=== PATIENT | female | born 1960 | race African-American/Black ===

== ENCOUNTER 2016-06-17 18:11 | Emergency (ER) | payer OTHER ==
[~2016-06-17] VITALS: Ht 157.5 cm; Wt 59.0 kg
[~2016-06-17 18:11] MED LIST: AMLO5TAB2 PO; ASP325T PO; CEPH500C PO; DICY20TA57 PO; HYDR-3454 PO; HYDR12.56 PO; LISI20TA PO; LORA1TAB PO; MELO-195 PO; OMEP-10 PO; POTA10TA36 PO; TOPI25TA2 PO
--- NOTE | 2016-06-17 18:55 | ED Head Injury ---
General Chief Complaint: General Problems/Pain Stated Complaint: HEADACHE/COUGH/STOMACH PAIN/NAUSEA Nursing Triage Note: AMBULATED TO ROOM 05 WITH MULTIPLE COMPLAINTS. STATES HER MAIN COMPLAINT IS HER HEADACHE THAT SHE HAS HAD FOR TWO DAYS. COUGH X1 MONTH WITH CLEAR SPUTUM, WHEEZING, BLURRY EYE SIGHT, AND NUMBESS IN LEFT ARM. FRESH BRUISE NOTED LEFT UPPER ARM BUT PT DOES NOT KNOW HOW SHE GOT IT. HAS AN APPT WITH DR FLOWER AT 0915. Source: patient, family, RN notes reviewed, old records Exam Limitations: no limitations History of Present Illness Time seen by provider: 18:54 Initial Comments As above and below. DAY is more frontal; Hx of HTN. States she is compliant c/ her meds. Has appointment c/ Eloise in AM regarding the above concerns. Occurred: other (current one x 2 days) Severity: moderate Location: frontal Associated Systoms: Cough, Headaches, Shortness of Air Allergies and Home Medications Allergies Coded Allergies: No Known Drug Allergies (Unverified , 10/22/12) Home Medications Albuterol Sulfate 6.7 Gm Hfa.aer.ad, 2 PUFF IH Q4H PRN for SHORTNESS OF BREATH, #1 Ref 0 Prescribed by: MIYA ARZATE on 06/17/162028 Amlodipine Besylate 5 Mg Tablet, 5 MG PO HS, (Reported) Aspirin 325 Mg Tab, 325 MG PO HS, (Reported) Cephalexin 500 Mg Capsule, 1 CAP PO TID, #21 Prescribed by: SHANE BASSETT on 12/01/14922 Hydrochlorothiazide 12.5 Mg Tablet, 12.5 MG PO HS, (Reported) Hydrocodone/Acetaminophen 1 Each Tablet, 1-2 TAB PO Q4-6HR PRN for PAIN, #30 Prescribed by: SHANE BASSETT on 12/01/1423 Lisinopril 20 Mg Tablet, 20 MG PO HS, (Reported) Meloxicam 15 Mg Tablet, 15 MG PO HS, (Reported) Methylprednisolone 4 Mg Tab.ds.pk, 4 MG PO UD, #1 Ref 0 Prescribed by: MIYA ARZATE on 06/17/162028 Topiramate 25 Mg Tablet, 25 MG PO HS, (Reported) Constitutional: see HPI Eyes: See HPI, Blurred Vision Respiratory: see HPI, cough, wheezing : No Psychiatric/Neurological: See HPI, Headache, Numbness (LUE) Hematologic/Lymphatic: See HPI, Easy Bruising All Other Systems Reviewed Negative Unless Noted: Yes (Negative excepted noted.) Past Lkuyoru-Xojuaf-Fnfxkt Hx Patient Social History Alcohol Use: Occasionally Uses Recreational Drug Use: No Smoking Status: Never a Smoker Recent Foreign Travel: No Contact w/Someone Who Travel: No Recent Infectious Disease Expo: No Recent Hopitalizations: Yes (LUMP REMOVED) Immunizations Up To Date Tetanus Booster (TDap): More than 5yrs Date of Pneumonia Vaccine: Jan 16, 2012 Date of Influenza Vaccine: Jan 16, 2012 Surgeries HX Surgeries: Yes ("LUMP REMOVED FROM LEFT ARM AND RIGHT THIGH") Respiratory Hx Respiratory Disorders: Yes Respiratory Disorders: Sleep Apnea Cardiovascular Hx Cardiac Disorders: Yes (MURMUR A CHILD) Neurological Hx Neurological Disorders: Yes Neurological Disorders: Headaches /Migraines Reproductive System Hx Reproductive Disorders: No Genitourinary Hx Genitourinary Disorders: No Gastrointestinal Hx Gastrointestinal Disorders: No Gastrointestinal Disorders: Ulcer Musculoskeletal Hx Musculoskeletal Disorders: Yes (BILAT LEG SPASMS, BUNION, JOINT PAIN) Musculoskeletal Disorders: Spasms Endocrine Hx Endocrine Disorders: No (USED TO TAKE THYROID MED, ) HEENT HX ENT Disorders: Yes (DENTURES) Cancer Hx Cancer: No Psychosocial Hx Psychiatric Problems: Yes Behavioral Health Disorders: Anxiety, Depression Integumentary HX Skin/Integumentary Disorder: No Blood Transfusions Hx Blood Disorders: No Physical Exam Vital Signs Vital Sign - Last 12Hours 06/17/16 18:40 Temp 97.6 Pulse 80 Resp 16 B/P (MAP) 176/118 Pulse Ox 98 Capillary Refill : Less Than 3 Seconds General Appearance: WD/WN, no apparent distress HEENT: PERRL/EOMI, normal ENT inspection, pharynx normal Neck: supple Cardiovascular: regular rate, rhythm Respiratory: no respiratory distress, wheezing Gastrointestinal: soft, No tenderness Extremities: normal inspection Psychiatric: alert, oriented x 3, depressed affect Crainal Nerves: normal hearing, normal speech, PERRL Motor/Sensory: no motor deficit Skin: warm/dry Betty Coma Score Best Eye Response: (4) Open Spontaneously Best Verbal Response: (5) Oriented Best Motor Response: (6) Obeys Commands Betty Total: 15 Progress/Results/Core Measures Results/Orders Lab Results Laboratory Tests Test 06/17/16 19:15 Range/Units White Blood Count 3.6 L 4.3-11.0 10^3/uL Red Blood Count 5.19 4.35-5.85 10^6/uL Hemoglobin 15.4 11.5-16.0 G/DL Hematocrit 43 35-52 % Mean Corpuscular Volume 83 80-99 FL Mean Corpuscular Hemoglobin 30 25-34 PG Mean Corpuscular Hemoglobin Concent 36 32-36 G/DL Red Cell Distribution Width 13.3 10.0-14.5 % Platelet Count 183 130-400 10^3/uL Mean Platelet Volume 10.5 H 7.4-10.4 FL Neutrophils (%) (Auto) 63 42-75 % Lymphocytes (%) (Auto) 22 12-44 % Monocytes (%) (Auto) 13 H 0-12 % Eosinophils (%) (Auto) 1 0-10 % Basophils (%) (Auto) 0 0-10 % Neutrophils # (Auto) 2.3 1.8-7.8 X 10^3 Lymphocytes # (Auto) 0.8 L 1.0-4.0 X 10^3 Monocytes # (Auto) 0.5 0.0-1.0 X 10^3 Eosinophils # (Auto) 0.0 0.0-0.3 10^3/uL Basophils # (Auto) 0.0 0.0-0.1 10^3/uL Prothrombin Time 13.9 12.2-14.7 SEC INR Comment 1.1 0.8-1.4 Activated Partial Thromboplast Time 27 24-35 SEC Sodium Level 140 135-145 MMOL/L Potassium Level 3.3 L 3.6-5.0 MMOL/L Chloride Level 107 98-107 MMOL/L Carbon Dioxide Level 24 21-32 MMOL/L Anion Gap 9 5-14 MMOL/L Blood Urea Nitrogen 14 7-18 MG/DL Creatinine 1.03 0.60-1.30 MG/DL Estimat Glomerular Filtration Rate > 60 BUN/Creatinine Ratio 14 Glucose Level 91 70-105 MG/DL Calcium Level 8.7 8.5-10.1 MG/DL Magnesium Level 2.2 1.8-2.4 MG/DL Total Bilirubin 0.5 0.1-1.0 MG/DL Aspartate Amino Transf (AST/SGOT) 16 5-34 U/L Alanine Aminotransferase (ALT/SGPT) 10 0-55 U/L Alkaline Phosphatase 99 40-136 U/L B-Type Natriuretic Peptide 51.5 <100.0 PG/ML Total Protein 6.8 6.4-8.2 G/DL Albumin 3.9 3.2-4.5 G/DL My Orders Orders - MIYA ARZATE DO Ct Head Wo (06/17/16 18:58) Chest Pa/Lat (2 View) (06/17/16 18:58) BNP (06/17/16 18:58) Cbc With Automated Diff (06/17/16 18:58) Comprehensive Metabolic Panel (06/17/16 18:58) Magnesium (06/17/16 18:58) Protime With Inr (06/17/16 18:58) Partial Thromboplastin Time (06/17/16 18:58) Saline Lock/Iv-Start (06/17/16 19:19) Albuterol/Ipra Inhalation Soln (Duoneb I (06/17/16 19:45) Svn Sm Volume Nebulizer Rt-Rfs (06/17/16 19:34) Dexamethasone Pf Injection (Decadron Pf (06/17/16 20:30) Ketorolac Injection (Toradol Injection) (06/17/16 20:30) Potassium Chloride (Tablet) (K Dur Table (06/17/16 20:30) Medications Given in ED Current Medications Medications Dose Ordered Sig/Homer Route Start Time Stop Time Status Last Admin Dose Admin Albuterol/ Ipratropium 3 ml ONCE ONCE INH 06/17/16 19:45 06/17/16 19:46 DC 06/17/16 20:03 3 ML Dexamethasone Sodium Phosphate 10 mg ONCE ONCE IV 06/17/16 20:30 06/17/16 20:31 DC 06/17/16 20:31 10 MG Ketorolac Tromethamine 15 mg ONCE ONCE IVP 06/17/16 20:30 06/17/16 20:31 DC 06/17/16 20:31 15 MG Potassium Chloride 40 meq ONCE ONCE PO 06/17/16 20:30 06/17/16 20:31 DC 06/17/16 20:30 40 MEQ Vital Signs/I&O Vital Sign - Last 12Hours 06/17/16 06/17/16 18:40 20:03 Temp 97.6 Pulse 80 Resp 16 B/P (MAP) 176/118 Pulse Ox 98 96 Blood Pressure Mean: 137 Diagnostic Imaging Diagonstic Imaging: Xray, CT Plain Films/CT/US/NM/MRI: chest, head Reviewed: Other (nothing acute on either CXR, or CT head per radiologist; did note nasal polyps noted on a MRI back in 2008 that patient wasn't aware of.) Departure Impression Impression: Primary Impression: Cough/wheezing (RAD) Additional Impressions: Labile hypertension Headache Hypokalemia Disposition: HOME, SELF-CARE Condition: Stable Departure-Patient Inst. Decision time for Depature: 20:24 Referrals: OBI FLOWER MD (PCP/Family) Primary Care Physician Patient Instructions: Asthma, Adult (DC), HEADACHE, High Blood Pressure (DC), Nasal Polyps Add. Discharge Instructions: All discharge instructions reviewed with patient and/or family. Voiced understanding. KEEP YOUR APPOINTMENT WITH DR. FLOWER SCHEDULE TO CONTINUE YOUR WORK UP. MAY BENEFIT FROM A FOLLOW UP VISIT WITH DR. HAWK REGARDING YOUR NASAL POLYP(S). Scripts Methylprednisolone (Medrol) 4 Mg Tab.ds.pk 4 MG PO UD, #1 PKG 0 Refills Prov: MIYA ARZATE DO 06/17/16 Albuterol Sulfate (Proventil Hfa) 6.7 Gm Hfa.aer.ad 2 PUFF IH Q4H Y for SHORTNESS OF BREATH, #1 EACH 0 Refills Prov: MIYA ARZATE DO 06/17/16 MIYA ARZATE DO Jun 17, 2016 18:54
[2016-06-17 19:24] LABS: BASOPHILS % (AUTO) 0 % (0-10); EOSINOPHILS % (AUTO) 1 % (0-10); LYMPHOCYTES # (AUTO) 0.8 X 10^3 (1.0-4.0); LYMPHOCYTES % (AUTO) 22 % (12-44); MEAN CORPUSCULAR HEMOGLOBIN 30 PG (25-34); MEAN CORPUSCULAR HGB CONC 36 G/DL (32-36); MEAN CORPUSCULAR VOLUME 83 FL (80-99); MEAN PLATELET VOLUME 10.5 FL (7.4-10.4); MONOCYTES # (AUTO) 0.5 X 10^3 (0.0-1.0); MONOCYTES % (AUTO) 13 % (0-12); NEUTROPHILS # (AUTO) 2.3 X 10^3 (1.8-7.8); NEUTROPHILS % (AUTO) 63 % (42-75); PLATELET COUNT 183 10^3/uL (130-400); RED BLOOD COUNT 5.19 10^6/uL (4.35-5.85); RED CELL DISTRIBUTION WIDTH 13.3 % (10.0-14.5); WHITE BLOOD COUNT 3.6 10^3/uL (4.3-11.0)
--- NOTE | 2016-06-17 19:29 | Diagnostic Imaging Report ---
Indication: Shortness breath, wheezing, cough PA and lateral chest Heart and mediastinum are normal. Lungs are clear. There are no effusions or pneumothoraces. Impression: Negative chest Dictated by: Dictated on workstation # [id number]
--- NOTE | 2016-06-17 19:31 | Diagnostic Imaging Report ---
PROCEDURE: CT head without contrast. TECHNIQUE: Multiple contiguous axial images were obtained through the brain without the use of intravenous contrast. INDICATION: Head pain. FINDINGS: There is no intracranial hemorrhage. No focal or generalized cerebral edema. No mass or mass effect. Orbits, sinuses, calvarium, and mastoids are unremarkable. The basilar cisterns are patent and sulci are non-effaced. There are no abnormal extra-axial fluid collections. IMPRESSION: Normal noncontrast-enhanced CT head. Dictated by: Dictated on workstation # [id number]
[2016-06-17 19:34] LABS: INR 1.1 (0.8-1.4); PROTHROMBIN TIME PATIENT 13.9 SEC (12.2-14.7)
[2016-06-17] MEDS ORDERED: RT-ALBUTEROL/IPRATROPIUM 3 ML (DUONEB) VIAL INH ONE (19:45)
[2016-06-17 19:51] LABS: ALANINE AMINOTRANSFERASE 10 U/L (0-55); ALBUMIN 3.9 G/DL (3.2-4.5); ANION GAP 9 MMOL/L (5-14); ASPARTATE AMINO TRANSFERASE 16 U/L (5-34); BILIRUBIN,TOTAL 0.5 MG/DL (0.1-1.0); BLOOD UREA NITROGEN 14 MG/DL (7-18); BUN/CREATININE RATIO 14; CALCIUM 8.7 MG/DL (8.5-10.1); CARBON DIOXIDE 24 MMOL/L (21-32); CHLORIDE 107 MMOL/L (98-107); CREATININE SERUM 1.03 MG/DL (0.60-1.30); GFR ESTIMATED > 60; GLUCOSE 91 MG/DL (70-105); MAGNESIUM 2.2 MG/DL (1.8-2.4); POTASSIUM 3.3 MMOL/L (3.6-5.0); SODIUM 140 MMOL/L (135-145); TOTAL PROTEIN 6.8 G/DL (6.4-8.2)
[2016-06-17] MEDS ORDERED: RT-ALBUINH IH (20:29)
[2016-06-17] MEDS ORDERED: METH4TAB PO (20:29)
[2016-06-17] MEDS ORDERED: KCL 20 MEQ TAB (K-DUR) PO ONE (20:30)
[2016-06-17] MEDS ORDERED: KETOROLAC 30 MG/ML VIAL IVP ONE (20:30)
[2016-06-17] MEDS ORDERED: DEXAMETHASONE PF 10 MG/ML (DECADRON) VIAL IV ONE (20:30)
[2016-06-17 20:50] VITALS: BP 174/114
--- OUTSIDE RECORDS SUMMARY | 2016-07-21 06:41 | XMS REPORT | Continuity of Care Document ---
Author Author [facility] Organization [facility] Address Unknown Phone Unavailable Allergies Active Description Code Type Severity Reaction Onset Reported/Identified Relationship to Patient Clinical Status Yes No Known Drug Allergies [id number] Drug Allergy Unknown N/ A 10/22/2012 Medications Problems Date Dx Coded Attending Type Code Diagnosis Diagnosed By 02/08/2012 Ot 574.20 CHOLELITHIASIS NOS 02/08/2012 Ot 789.06 ABDOMINAL PAIN, EPIGASTRIC 02/20/2012 Ot 300.00 ANXIETY STATE NOS 02/20/2012 Ot 401.9 HYPERTENSION NOS 02/20/2012 Ot 531.70 CHR STOMACH ULCER NOS 02/20/2012 Ot 716.90 ARTHROPATHY NOS-UNSPEC 02/20/2012 Ot 786.50 CHEST PAIN NOS 02/20/2012 Ot V17.49 FAMILY HISTORY OF OTHER CARDIOVASCULAR D 02/20/2012 Ot V58.66 LONG-TERM (CURRENT) USE OF ASPIRIN 02/20/2012 Ot V58.69 OTH MED,LT,CURRENT USE 05/18/2012 Ot 531.70 CHR STOMACH ULCER NOS 10/24/2012 OBI FLOWER MD Ot 276.8 HYPOPOTASSEMIA 10/24/2012 OBI FLOWER MD Ot 300.00 ANXIETY STATE NOS 10/24/2012 OBI FLOWER MD Ot V15.82 HISTORY OF TOBACCO USE 03/27/2013 OBI FLOWER MD Ot 327.23 OBSTRUCTIVE SLEEP APNEA (ADULT) (PEDIATR 03/27/2013 OBI FLOWER MD Ot 786.09 RESPIRATORY ABNORM NEC 04/05/2014 Ot 789.06 04/05/2014 Ot V72.84 04/05/2014 SHAMIKA SUAZO DO Ot 611.72 05/10/2014 Ot 789.06 05/10/2014 Ot V72.84 05/10/2014 SHAMIKA SUAZO DO Ot 611.72 11/28/2014 Ot 789.06 11/28/2014 Ot V72.84 11/28/2014 [place] SHAMIKA JAMESON Ot 611.72 12/01/2014 DANYELLE DPM, SHANE Q Ot 735.0 HALLUX VALGUS 12/01/2014 DANYELLE DPM, SHANE Q Ot 735.4 OTHER HAMMER TOE 12/01/2014 DANYELLE DPM, SHANE Q Ot 754.52 METATARSUS PRIMUS VARUS 12/14/2014 DANYELLE DPM, SHANE Q Ot 735.0 12/14/2014 DANYELLE DPM, SHANE Q Ot 735.4 12/14/2014 DANYELLE DPM, SHANE Q Ot V72.63 12/14/2014 DANYELLE DPM, SHANE Q Ot V74.8 01/24/2015 Ot 789.06 01/24/2015 Ot V72.84 01/24/2015 [place] SHAMIKA JAMESON Ot 611.72 01/24/2015 DANYELLE DPM, SHANE Q Ot 735.0 01/24/2015 DANYELLE DPM, SHANE Q Ot 735.4 01/24/2015 DANYELLE DPM, SHANE Q Ot V72.63 01/24/2015 DANYELLE DPM, SHANE Q Ot V74.8 01/24/2015 Ot 789.06 01/24/2015 Ot V72.84 01/24/2015 [place] SHAMIKA JAMESON Ot 611.72 01/24/2015 DANYELLE DPM, SHANE Q Ot 735.0 01/24/2015 DANYELLE DPM, SHANE Q Ot 735.4 01/24/2015 DANYELLE DPM, SHANE Q Ot V72.63 01/24/2015 DANYELLE DPM, SHANE Q Ot V74.8 10/17/2015 MUNDO HERNANDEZ, OBI R Ot M25.40 EFFUSION, UNSPECIFIED JOINT 10/25/2015 MUNDO HERNANDEZ, OBI R Ot M25.40 EFFUSION, UNSPECIFIED JOINT 10/30/2015 MUNDO HERNANDEZ, OBI R Ot M25.40 EFFUSION, UNSPECIFIED JOINT 01/29/2016 Ot 789.06 ABDOMINAL PAIN, EPIGASTRIC 01/29/2016 Ot V72.84 EXAM PRE-OPERATIVE NOS 01/29/2016 SUAZO SHAMIKA JAMESON Ot 611.72 LUMP OR MASS IN BREAST 01/29/2016 DANYELLE DPM, SHANE Q Ot 735.0 HALLUX VALGUS 01/29/2016 DANYELLE DPM, SHANE Q Ot 735.4 OTHER HAMMER TOE 01/29/2016 DANYELLE DPM, SHANE Q Ot V72.63 PRE-PROCEDURAL LABORATORY EXAMINATION 01/29/2016 DANYELLE DPM, SHANE Q Ot V74.8 SCREEN-BACTERIAL DIS NEC 01/29/2016 MUNDO HERNANDEZ, OBI R Ot M25.40 EFFUSION, UNSPECIFIED JOINT 06/17/2016 Ot 789.06 ABDOMINAL PAIN, EPIGASTRIC 06/17/2016 Ot V72.84 EXAM PRE-OPERATIVE NOS 06/17/2016 SHAMIKA SUAZO DO Ot 611.72 LUMP OR MASS IN BREAST 06/17/2016 DANYELLE DPM, SHANE Q Ot 735.0 HALLUX VALGUS 06/17/2016 DANYELLE DPM, SHANE Q Ot 735.4 OTHER HAMMER TOE 06/17/2016 DANYELLE DPM, SHANE Q Ot V72.63 PRE-PROCEDURAL LABORATORY EXAMINATION 06/17/2016 DANYELLE DPM, SHANE Q Ot V74.8 SCREEN-BACTERIAL DIS NEC 06/17/2016 MUNDO HERNANDEZ, OBI Morfin Ot M25.40 EFFUSION, UNSPECIFIED JOINT 06/18/2016 MIYA ARZATE DO Ot E87.6 HYPOKALEMIA 06/18/2016 MIYA ARZATE DO Ot I10 ESSENTIAL (PRIMARY) HYPERTENSION 06/18/2016 MIYA ARZATE DO Ot R05 COUGH 06/18/2016 MIYA ARZATE DO, Ot R51 HEADACHE 06/18/2016 MIYA ARZATE DO Ot Z79.82 HISTORICAL MANUSCRIPTS CURATOR (CURRENT) USE OF ASPIRIN 06/18/2016 MIYA ARZATE DO, Ot Z79.899 OTHER HISTORICAL MANUSCRIPTS CURATOR (CURRENT) DRUG THERAPY 06/28/2016 MUNDO HERNANDEZ, OBI Morfin Ot R10.33 PERIUMBILICAL PAIN Procedures Results Test Result Range Serum or plasma rheumatoid factor measurement (units/volume) - 10/16/15 15:35 Serum or plasma rheumatoid factor measurement (units/volume) NEGATIVE NEGATIVE Erythrocyte sedimentation rate by westergren method - 10/16/15 15:35 Erythrocyte sedimentation rate by westergren method 13 mm 0-30 ANTI-NUCLEAR AB (NINA) ANALYZER - 10/16/15 15:35 Screening antinuclear antibody (NINA) assay by enzyme immunoassay <1:80 <1:80 Complete blood count (CBC) with automated white blood cell (WBC) differential - 06/17/16 19:15 Blood leukocytes automated count (number/volume) 3.6 10*3/ uL 4.3-11.0 Blood erythrocytes automated count (number/volume) 5.19 10*6 /uL 4.35-5.85 Venous blood hemoglobin measurement (mass/volume) 15.4 g/dL 11.5-16.0 Blood hematocrit (volume fraction) 43 % 35-52 Automated erythrocyte mean corpuscular volume 83 [foz_us] 80-99 Automated erythrocyte mean corpuscular hemoglobin (mass per erythrocyte) 30 pg 25-34 Automated erythrocyte mean corpuscular hemoglobin concentration measurement ( mass/volume) 36 g/dL 32-36 Automated erythrocyte distribution width ratio 13.3 % 10.0-14.5 Automated blood platelet count (count/volume) 183 10*3/uL 130-400 Automated blood platelet mean volume measurement 10.5 [foz_ us] 7.4-10.4 Automated blood neutrophils/100 leukocytes 63 % 42-75 Automated blood lymphocytes/100 leukocytes 22 % 12-44 Blood monocytes/100 leukocytes 13 % 0-12 Automated blood eosinophils/100 leukocytes 1 % 0-10 Automated blood basophils/100 leukocytes 0 % 0-10 Blood neutrophils automated count (number/volume) 2.3 10*3 1.8-7.8 Blood lymphocytes automated count (number/volume) 0.8 10*3 1.0-4.0 Blood monocytes automated count (number/volume) 0.5 10*3 0.0-1.0 Automated eosinophil count 0.0 10*3/uL 0.0-0.3 Automated blood basophil count (count/volume) 0.0 10*3/uL 0.0-0.1 PT panel in platelet poor plasma by coagulation assay - 06/17/16 19:15 Prothrombin time (PT) in platelet poor plasma by coagulation assay 13.9 s 12.2-14.7 INR in platelet poor plasma or blood by coagulation assay 1.1 0.8-1.4 Activated partial thromboplastin time (aPTT) in platelet poor plasma bycoagulation assay - 06/17/16 19:15 Activated partial thromboplastin time (aPTT) in platelet poor plasma bycoagulation assay 27 s 24-35 Comprehensive metabolic panel - 06/17/16 19:15 Serum or plasma sodium measurement (moles/volume) 140 mmol/ L 135-145 Serum or plasma potassium measurement (moles/volume) 3.3 mmol/L 3.6-5.0 Serum or plasma chloride measurement (moles/volume) 107 mmol /L 98-107 Carbon dioxide 24 mmol/L 21-32 Serum or plasma anion gap determination (moles/volume) 9 mmol/L 5-14 Serum or plasma urea nitrogen measurement (mass/volume) 14 mg/dL 7-18 Serum or plasma creatinine measurement (mass/volume) 1.03 mg /dL 0.60-1.30 Serum or plasma urea nitrogen/creatinine mass ratio 14 NRG Serum or plasma creatinine measurement with calculation of estimated glomerular filtration rate > NRG Serum or plasma glucose measurement (mass/volume) 91 mg/dL 70-105 Serum or plasma calcium measurement (mass/volume) 8.7 mg/dL 8.5-10.1 Serum or plasma total bilirubin measurement (mass/volume) 0.5 mg/dL 0.1-1.0 Serum or plasma alkaline phosphatase measurement (enzymatic activity/volume) 99 U/L 40-136 Serum or plasma aspartate aminotransferase measurement (enzymatic activity/ volume) 16 U/L 5-34 Serum or plasma alanine aminotransferase measurement (enzymatic activity/volume ) 10 U/L 0-55 Serum or plasma protein measurement (mass/volume) 6.8 g/dL 6.4-8.2 Serum or plasma albumin measurement (mass/volume) 3.9 g/dL 3.2-4.5 Magnesium - 06/17/16 19:15 Magnesium 2.2 mg/dL 1.8-2.4 Serum or plasma lithium measurement (moles/volume) - 06/17/16 19:15 BNP level 51.5 pg/mL <100.0 Encounters ACCT No. Visit Date/Time Discharge Status Pt. Type Provider Facility Loc./Unit Complaint [id number] 06/17/2016 18:13:00 2016 20:50:00 DIS Outpatient MIYA ARZATE DO [facility] ER HEADACHE/COUGH/STOMACH PAIN/NAUSEA [id number] 12/01/2014 06:20:00 2014 11:20:00 DIS Outpatient DANYELLE SORINDenny, SHANE Q [facility] SDC HALLUX VALGUS, HAMMERTOE RIGHT FIFTH TOE [id number] 11/28/2014 11:50:00 2014 23:59:59 CLS Outpatient DANYELLE DPM SHANE Q [facility] PREOP HALLUX VALGUS, HAMMERTOE RIGHT FIFTH TOE [id number] 03/26/2013 20:11:00 2013 07:46:00 DIS Outpatient OBI FLOWER MD [facility] SLEEP OA,SNORING,HTN,INSOMNIA,NARCOLEPSY, EDS,HEADACHES [id number] 02/17/2013 13:39:00 2012 23:59:59 CLS Outpatient SHAMIKA SUAZO DO [facility] RAD LEFT BREAST MASS [id number] 10/22/2012 13:38:00 2012 10:31:00 DIS Inpatient OBI FLOWER MD [facility] 4TH LOW GRADE TEMP,MALIASE,FATIGUE [id number] 06/26/2016 10:36:00 ACT Outpatient OBI FLOWER MD [facility] RAD PERIUMBILICAL ABD PAIN [id number] 10/16/2015 15:22:00 ACT Outpatient OBI FLOWER MD [facility] LAB JOINT SWELLING [id number] 05/18/2012 07:28:00 Document Registration [id number] 05/14/2012 07:23:00 Document Registration [id number] 02/17/2012 17:15:00 Document Registration [id number] 02/11/2012 10:19:00 Document Registration [id number] 02/08/2012 16:17:00 Document Registration
--- OUTSIDE RECORDS SUMMARY | 2016-07-21 06:41 | XMS REPORT | Continuity of Care Document ---
Author Author [facility] Organization [facility] Address Unknown Phone Unavailable Care Team Providers Care Flower Shop Laborer/Designer Name Role Phone OBI FLOWER MD PP Insurance Providers Payer Name Policy Number Subscriber Name Relationship Santy [id number] Beryl Wills Yogesh 02 Advance Directives Directive Response Recorded Date Advance Directives N 10/22/12 1:45pm Health Care Power of Notch Grinder N 10/22/12 1:45pm Organ Donor N 10/22/12 1:45pm Problems No Known Problems or Medical conditions. Family History History Response Recorded Date/Time Hx Family Cancer N 10/22/12 1:45pm Hx Family Cardiac Disorders Y 10/22/12 1: 45pm Hx Family Hypertension Y FATHER 10/22/12 1:45pm Hx Family Myocardial Infarction Y FATHER 10/22/12 1:45pm Social History History Response Recorded Date/Time Alcohol Use Occasionally Uses 10/22/12 1: 45pm Recreational Drug Use N 10/22/12 1:45pm Allergies, Adverse Reactions, Alerts Allergen Type Severity Reaction Last Updated No Known Drug Allergies 10/22/12 Medications Medication Dose Units Route Sig Qty Days Potassium Chloride (K-Dur) 1 Each PO DAILY WITH MEAL 30 Lorazepam (Lorazepam 1 Mg) 1 Mg PO HS Meloxicam 15 Mg PO HS Aspirin (Aspirin 325 Mg Tab) 325 Mg PO HS Topiramate 25 Mg PO HS Amlodipine Besylate 5 Mg PO HS Lisinopril (Prinivil) 20 Mg PO HS Omeprazole (Prilosec 20 Mg) 20 Mg PO BID Dicyclomine Hcl (Bentyl) 1 Each PO ACHS PRN 20 Hydrochlorothiazide 12.5 Mg PO HS Meloxicam 15 Mg PO HS Immunizations Name Given Type Date of Pneumonia Vaccine 11/01/12 H Date of Influenza Vaccine 01/16/12 H Response Recorded Date/Time Status not known Unknown Results Test Date Result Interp. Ref. Range Activated Partial Thromboplast Time February 17, 2012 6: 53pm 29 SEC N 24-35 Alanine Aminotransferase (ALT/SGPT) February 17, 2012 6: 25pm 28 U/L L 30-65 Albumin February 17, 2012 6:25pm 3.9 G/ DL N 3.4-5.0 Alkaline Phosphatase February 17, 2012 6:25pm 89 U/L N 50-136 Amylase Level February 17, 2012 6:53pm 84 U/L N 25-115 Anti-Nuclear Antibody Screen October 13, 2007 11:40am <1:80 - Aspartate Amino Transf (AST/SGOT) February 17, 2012 6:25pm 18 U/L N 15-37 BUN/Creatinine Ratio February 17, 2012 6:25pm 16 - Basophils # (Auto) February 08, 2012 6:07pm 0.0 10^3/uL N 0.0-0.1 Basophils (%) (Auto) February 08, 2012 6:07pm 1 % N 0-10 Blood Urea Nitrogen February 17, 2012 6:25pm 18 MG/DL N 7-18 C-Reactive Protein February 17, 2012 6:25pm 0.4 MG/DL N 0.2-0.9 Calcium Level February 17, 2012 6:25pm 8.9 MG/DL N 8.5-10.1 Carbon Dioxide Level February 17, 2012 6:25pm 29 MMOL/L N 21-32 Chloride Level February 17, 2012 6:25pm 106 MMOL/L N 101-110 Cholesterol Level February 17, 2012 6:25pm 181 MG/DL N -200 Creatinine February 17, 2012 6:25pm 1.1 MG/DL N 0.6-1.3 Eosinophils # (Auto) February 08, 2012 6:07pm 0.2 10^3/uL N 0.0-0.3 Eosinophils (%) (Auto) February 08, 2012 6:07pm 4 % N 0-10 Erythrocyte Sedimentation Rate February 17, 2012 6:25pm 9 MM/HR N 0-30 Folate May 17, 2009 3:10pm >24.0 NG/ ML H - Free Thyroxine May 17, 2009 3:10pm 0.84 NG/DL N 0.59-1.17 Glucose Level February 17, 2012 6:25pm 83 MG/DL N 74-106 HDL Cholesterol February 17, 2012 6:25pm 60 MG/DL N 35-60 Hematocrit February 17, 2012 6:25pm 40 % N 35-52 Hemoglobin February 17, 2012 6:25pm 14.3 G/DL N 11.5-16.0 Hemoglobin A1c June 11, 2011 10:19am 4.6 % N 4.5-6.2 LDL Cholesterol February 17, 2012 6:25pm 104 MG/DL N 0-129 Lipase February 17, 2012 6:53pm 141 U/L N 73-393 Lyme Disease (B.burgdorferi) Ab November 13, 2006 5:04pm 0.32 - Lymphocytes # (Auto) February 08, 2012 6:07pm 2.1 X 10^3 N 1.0-4.0 Lymphocytes (%) (Auto) February 08, 2012 6:07pm 44 % N 12-44 Magnesium Level October 13, 2007 11:40am 1.9 MG/DL N 1.8-2.4 Mean Corpuscular Hemoglobin February 17, 2012 6:25pm 30 PG N 25-34 Mean Corpuscular Hemoglobin Concent February 17, 2012 6: 25pm 36 G/DL N 32-36 Mean Corpuscular Volume February 17, 2012 6:25pm 84 FL N 80-99 Mean Platelet Volume February 17, 2012 6:25pm 11.0 FL H 7.4-10.4 Monocytes # (Auto) February 08, 2012 6:07pm 0.3 X 10^3 N 0.0-1.0 Monocytes (%) (Auto) February 08, 2012 6:07pm 6 % N 0-12 Neutrophils # (Auto) February 08, 2012 6:07pm 2.2 X 10^3 N 1.8-7.8 Neutrophils (%) (Auto) February 08, 2012 6:07pm 46 % N 42-75 Phosphorus Level October 13, 2007 11:40am 3.7 MG/DL N 2.5-4.9 Platelet Count February 17, 2012 6:25pm 233 10^3/uL N 130-400 Potassium Level February 17, 2012 6:25pm 3.3 MMOL/L L 3.6-5.0 Prothromb Time International Ratio February 17, 2012 6:53pm 1.1 N 0.8-1.4 Prothrombin Time February 17, 2012 6:53pm 14.4 SEC N 12.2-14.7 Red Blood Count February 17, 2012 6:25pm 4.81 10^6/uL N 4.35-5.85 Red Cell Distribution Width February 17, 2012 6:25pm 13.3 % N 10.0-14.5 Salicylates Level February 17, 2012 6:25pm 1.0 MG/DL L 2.8-20.0 Sodium Level February 17, 2012 6:25pm 140 MMOL/L N 135-145 Thyroid Stimulating Hormone (TSH) February 17, 2012 6:25pm 2.32 UIU/ML N 0.34- 5.60 Total Bilirubin February 17, 2012 6:25pm 0.5 MG/DL N 0.0-1.0 Total Protein February 17, 2012 6:25pm 7.5 G/DL N 6.4-8.2 Triglycerides Level February 17, 2012 6:25pm 85 MG/DL N 30.0-150.0 Troponin I February 18, 2012 6:05am < 0.10 NG/ML 0.00-0.10 Urine Bacteria February 08, 2012 4:42pm NEGATIVE /HPF - Urine Bilirubin February 08, 2012 4:42pm NEGATIVE - Urine Casts February 08, 2012 4:42pm NONE /LPF - Urine Clarity February 08, 2012 4:42pm CLEAR - Urine Color February 08, 2012 4:42pm YELLOW - Urine Crystals February 08, 2012 4:42pm NONE /LPF - Urine Culture Indicated February 08, 2012 4:42pm NO - Urine Glucose (UA) February 08, 2012 4:42pm NEGATIVE - Urine Ketones February 08, 2012 4:42pm NEGATIVE - Urine Leukocyte Esterase February 08, 2012 4:42pm TRACE H - Urine Mucus February 08, 2012 4:42pm NEGATIVE /LPF - Urine Nitrite February 08, 2012 4:42pm NEGATIVE - Urine Protein February 08, 2012 4:42pm NEGATIVE - Urine RBC February 08, 2012 4:42pm NONE /HPF - Urine Specific [place] February 08, 2012 4:42pm 1.020 - Urine Squamous Epithelial Cells February 08, 2012 4:42pm 0-2 /HPF - Urine Urobilinogen February 08, 2012 4:42pm 1 MG/DL - Urine WBC February 08, 2012 4:42pm 2-5 / HPF - Urine pH February 08, 2012 4:42pm 5 - VLDL Cholesterol February 17, 2012 6:25pm 17 MG/DL N 5-40 Vitamin B12 Level May 17, 2009 3:10pm 427 PG/ML - White Blood Count February 17, 2012 6:25pm 5.7 10^3/uL N 4.3-11.0 Lab Scanned Report February 17, 2012 5:10pm LAB Reports [id number] - Estimat Glomerular Filtration Rate February 08, 2012 6:07pm > 60 - Creatine Kinase February 18, 2012 6:05am 74 U/L N 1-159 Cardiac Panel Pathologist Review February 17, 2012 6:53pm SEE CARDIAC PATH REV - Urine RBC (Auto) February 08, 2012 4:42pm NEGATIVE - Procedures Procedure Code Date LEFT HEART CATHETERIZATION 77486 INJECTION FOR HEART X-RAYS 08330 INJECT FOR CORONARY X-RAYS 19756 IMAGING, CARDIAC CATH [id number] 11/26/05 IMAGING, CARDIAC CATH [id number] 11/26/05 UPPER GI ENDOSCOPY BIOPSY 78000 02/17/12 UPPER GI ENDOSCOPY BIOPSY 16544 05/18/12 Encounters Encounter Location Date/Time Discharged Inpatient [facility] 1:38pm Departed Emergency Room [facility] 09/03 4:17pm
== END 2016-06-17 20:50 | disposition home or self-care (01) ==
LOC: EDUNIT# 18:11 → ER 18:13
DX: R05 Cough (principal); I10 Essential (primary) hypertension; R51 Headache; E87.6 Hypokalemia; Z79.82 Long term (current) use of aspirin; Z79.899 Other long term (current) drug therapy
CPT/HCPCS: 36415; 70450; 71020; 80053; 83735; 83880; 85025; 85610; 85730; 96374; 96375

== ENCOUNTER → 2016-06-26 | Outpatient (CLI) | payer OTHER ==
[~2016-06-26] MED LIST changes: +METH4TAB PO; +RT-ALBUINH IH
--- NOTE | 2016-06-26 11:16 | Diagnostic Imaging Report ---
PROCEDURE: CT abdomen and pelvis without contrast. TECHNIQUE: Multiple contiguous axial images were obtained through the abdomen and pelvis without the use of intravenous contrast. INDICATION: Periumbilical pain. FINDINGS: The lung bases are clear. The liver appears normal. The gallbladder is present. The spleen is not enlarged. The pancreas is normal. The adrenals and kidneys appear normal. The appendix is normal. There is a tiny umbilical hernia containing fat. The small bowel is not dilated. The colon appears grossly normal. There is a 4.5 cm subserosal fibroid on the left side of the uterus and a 2.7 cm intramural fibroid on the right side of the uterus. The adnexa are unremarkable. There is minimal atherosclerosis of the aorta but no aneurysm. IMPRESSION: Fibroid uterus. Tiny umbilical hernia containing fat. Dictated by: Dictated on workstation # [id number]
== END ==
LOC: RAD 10:36
PROVIDERS: ATTEND Family Medicine
DX: R10.33 Periumbilical pain (principal)
CPT/HCPCS: 74176

== ENCOUNTER → 2017-01-15 | Outpatient (CLI) | payer OTHER | LOC: LAB 10:50 | PROVIDERS: ATTEND Family Medicine | DX: M15.0 Primary generalized (osteo)arthritis (principal) | CPT/HCPCS: 36415; 85652; 86038; 86039; 86430 ==

== ENCOUNTER → 2017-02-14 | Outpatient (CLI) | payer OTHER ==
[2017-02-14 11:55] LABS: MEAN PLATELET VOLUME 11.2 FL (7.4-10.4); RED BLOOD COUNT 4.91 10^6/uL (4.35-5.85); RED CELL DISTRIBUTION WIDTH 13.5 % (10.0-14.5); WHITE BLOOD COUNT 10.3 10^3/uL (4.3-11.0)
[2017-02-14 11:57] LABS: BILIRUBIN,URINE NEGATIVE (NEGATIVE); KETONES,URINE NEGATIVE (NEGATIVE); LEUKOCYTE ESTERASE ,URINE 2+ (NEGATIVE); NITRITE,URINE NEGATIVE (NEGATIVE); PH,URINE 7 (5-9); PROTEIN,URINE NEGATIVE (NEGATIVE); UROBILINOGEN,URINE NORMAL (NORMAL)
[2017-02-14 12:09] LABS: WBC,URINE 0-2 /HPF
[2017-02-14 12:21] LABS: ALANINE AMINOTRANSFERASE 13 U/L (0-55); ANION GAP 9 MMOL/L (5-14); ASPARTATE AMINO TRANSFERASE 14 U/L (5-34); BILIRUBIN,TOTAL 0.3 MG/DL (0.1-1.0); BLOOD UREA NITROGEN 28 MG/DL (7-18); BUN/CREATININE RATIO 33; CALCIUM 9.3 MG/DL (8.5-10.1); CARBON DIOXIDE 25 MMOL/L (21-32); CHLORIDE 108 MMOL/L (98-107); CREATININE SERUM 0.85 MG/DL (0.60-1.30); GFR ESTIMATED > 60; GLUCOSE 88 MG/DL (70-105); POTASSIUM 3.3 MMOL/L (3.6-5.0); SODIUM 142 MMOL/L (135-145); TOTAL PROTEIN 7.3 GM/DL (6.4-8.2); hs C REACTIVE PROTEIN 0.03 MG/DL (0.00-0.50)
[2017-02-14 12:42] LABS: THYROID STIMULATING HORMONE 1.55 UIU/ML (0.35-4.94)
[2017-02-17 16:07] LABS: CYCLIC CITRULLUINATED PEPTIDE 2.9 Units (0.0-19.0)
[2017-02-17 16:19] LABS: DIL RUSSELL VIPER VENOM SCREEN 0.86 ratio (0.00-1.20); LUPUS ANTICOAGULANT PTT 28.2 Seconds (24.4-41.7)
[2017-02-18 08:34] LABS: PT REF RML 13.8 SEC (10.5-15.7); PTT LUPUS 26.9 SEC (20.6-39.2)
== END ==
LOC: LAB 11:16
PROVIDERS: ATTEND Internal Medicine Rheumatology
DX: M32.19 Other organ or system involvement in systemic lupus erythematosus (principal)
CPT/HCPCS: 36415; 80053; 81000; 84439; 84443; 85027; 85610; 85613; 85705; 85730; 86038; 86039; 86141; 86146; 86147; 86200; 86430

== ENCOUNTER → 2017-05-20 | Outpatient (CLI) | payer OTHER ==
[2017-05-20 16:29] LABS: BASOPHILS % (AUTO) 0 % (0-10); EOSINOPHILS # (AUTO) 0.3 10^3/uL (0.0-0.3); EOSINOPHILS % (AUTO) 5 % (0-10); HEMATOCRIT 43 % (35-52); LYMPHOCYTES # (AUTO) 1.8 X 10^3 (1.0-4.0); LYMPHOCYTES % (AUTO) 30 % (12-44); MEAN CORPUSCULAR HEMOGLOBIN 30 PG (25-34); MEAN CORPUSCULAR HGB CONC 35 G/DL (32-36); MEAN CORPUSCULAR VOLUME 86 FL (80-99); MEAN PLATELET VOLUME 10.7 FL (7.4-10.4); MONOCYTES # (AUTO) 0.5 X 10^3 (0.0-1.0); MONOCYTES % (AUTO) 9 % (0-12); NEUTROPHILS # (AUTO) 3.3 X 10^3 (1.8-7.8); NEUTROPHILS % (AUTO) 56 % (42-75); PLATELET COUNT 221 10^3/uL (130-400); RED BLOOD COUNT 4.93 10^6/uL (4.35-5.85); WHITE BLOOD COUNT 5.9 10^3/uL (4.3-11.0)
[2017-05-20 16:55] LABS: ALANINE AMINOTRANSFERASE 16 U/L (0-55); ALKALINE PHOSPHATASE 96 U/L (40-136); BILIRUBIN,TOTAL 0.4 MG/DL (0.1-1.0); BUN/CREATININE RATIO 21; CALCIUM 9.2 MG/DL (8.5-10.1); CARBON DIOXIDE 29 MMOL/L (21-32); CHLORIDE 104 MMOL/L (98-107); CREATININE SERUM 0.99 MG/DL (0.60-1.30); GFR ESTIMATED > 60; GLUCOSE 85 MG/DL (70-105); POTASSIUM 3.2 MMOL/L (3.6-5.0); SODIUM 143 MMOL/L (135-145); TOTAL PROTEIN 7.3 GM/DL (6.4-8.2)
== END ==
LOC: LAB 16:08
PROVIDERS: ATTEND Family Medicine
DX: N39.45 Continuous leakage (principal)
CPT/HCPCS: 36415; 80053; 83036; 84443; 85025

== ENCOUNTER 2017-12-10 13:26 | Outpatient (CLI) | payer OTHER ==
[~2017-12-10] VITALS: Ht 157.5 cm; Wt 85.4 kg
[2017-12-10 13:51] VITALS: BP 152/106
[2017-12-10] MEDS ORDERED: POTA-51 PO (14:28)
[2017-12-10] MEDS ORDERED: ATOR40TA70 PO (14:28)
[2017-12-10] MEDS ORDERED: ASPI-999 PO (14:28)
[2017-12-10] MEDS ORDERED: MELO7.5T46 PO (14:28)
[2017-12-10] MEDS ORDERED: SOLI10TA2 PO (14:28)
[2017-12-10] MEDS ORDERED: LOSA50TA7 PO (14:28)
[2017-12-10] MEDS ORDERED: TOPI100T11 PO (14:28)
[2017-12-10] MEDS ORDERED: FLUT9.9S NS (14:28)
[2017-12-10] MEDS ORDERED: AMLO5TAB7 PO (14:28)
[2017-12-10] MEDS ORDERED: FAMO20TA3 PO (14:28)
[2017-12-10] MEDS ORDERED: ESCI20TA PO (14:28)
[2017-12-10] MEDS ORDERED: ROPI2TAB28 PO (14:28)
[2017-12-10] MEDS ORDERED: HYDR200T78 PO (14:28)
[2017-12-11] MEDS ORDERED: MELO15TA39 PO (11:52)
== END 2017-12-10 16:30 | disposition home or self-care (01) ==
LOC: PREOP 13:26
PROVIDERS: ATTEND Orthopaedic Surgery
DX: Z01.818 Encounter for other preprocedural examination (principal)
CPT/HCPCS: 87081

== ENCOUNTER 2017-12-17 07:00 | Day surgery (SDC) | payer OTHER ==
--- NOTE | 2017-12-08 11:57 | HISTORY AND PHYSICAL ---
DATE OF SERVICE: This will be for outpatient surgery on 12/17/2017 for right shoulder arthroscopy. HISTORY OF PRESENT ILLNESS: The patient is a 57-year-old right hand dominant female complains of progressive worsening right shoulder pain. She reports limitations because of the shoulder. This has been ongoing for several months and has been progressive in nature. She reports it is activity limiting. She underwent an MRI, which revealed a SLAP tear. She has failed to respond to conservative measures. Due to functional impairment and failure to improve, the patient has elected to proceed with surgical intervention. REVIEW OF SYSTEMS: No chest pain. No shortness of breath. No dysuria. PAST MEDICAL HISTORY: Hypertension, lupus, migraines, hyperlipidemia. PAST SURGICAL HISTORY: Tubal ligation, mass excision from the arm. FAMILY HISTORY: Noncontributory. PRIMARY CARE PROVIDER: Ishmael Navas MD. MEDICATIONS: , Proventil, losartan, amlodipine, hydrochlorothiazide, topiramate, meloxicam, , aspirin. ALLERGIES: No known drug allergies. SOCIAL HISTORY: The patient drinks alcohol occasionally. Denies tobacco use. PHYSICAL EXAMINATION: GENERAL: The patient is well developed, well nourished, no acute distress. HEENT: Normocephalic, atraumatic. Pupils are equal, round, reactive to light. Oropharynx is clear. NECK: Supple, no lymphadenopathy. LUNGS: Clear to auscultation bilaterally. HEART: Regular rate and rhythm. ABDOMEN: Soft, nontender, nondistended. EXTREMITIES: The right shoulder demonstrates positive Mogadore's maneuver pain with apprehension. She has negative Spurling's maneuver. She has mildly positive Neer's and Jerez sign. Slight weakness with abduction and external rotation. Active forward elevation of 170 degrees with painful beyond 90, external rotation symmetric at 70 and internal rotation is to L2 actively. IMPRESSION: Right shoulder SLAP tear. PLAN: Right shoulder arthroscopic biceps tenotomy and assessment of rotator cuff for possible rotator cuff repair. The risks, benefits, options, ramifications and recovery were discussed at length with the patient. She understands and wishes to proceed. Job ID: [id number] DocumentID: [id number] Dictated Date: 12/08/2017 11:21:57 Associate Partner Date: 12/08/2017 11:56:37 Dictated By: MIKE JHA MD
[~2017-12-17] VITALS: Ht 157.5 cm; Wt 85.4 kg
[~2017-12-17 07:00] MED LIST changes: +AMLO5TAB7 PO; +ASPI-999 PO; +ATOR40TA70 PO; +ESCI20TA PO; +FAMO20TA3 PO; +FLUT9.9S NS; +HYDR200T78 PO; +LOSA50TA7 PO; +MELO15TA39 PO; +MELO7.5T46 PO; +POTA-51 PO; +ROPI2TAB28 PO; +SOLI10TA2 PO; +TOPI100T11 PO
[2017-12-17 07:10] VITALS: BP 131/84
[2017-12-17] MEDS ORDERED: ROPIVACAINE 5MG/ML 30ML VIAL ONE (07:20)
[2017-12-17] MEDS ORDERED: fentaNYL INJECTION 100 MCG/2 ML AMP ONE (07:23)
[2017-12-17] MEDS ORDERED: MIDAZOLAM 2 MG/2 ML (VERSED) VIAL ONE (07:23)
--- NOTE | 2017-12-17 07:24 | Progress Note-Pre Operative ---
Pre-Operative Progress Note H&P Reviewed The H&P was reviewed, patient examined and no changes noted. Date Seen by Provider: Dec 17, 2017 Time Seen by Provider: 07:24 Date H&P Reviewed: Dec 17, 2017 Time H&P Reviewed: 07:24 Pre-Operative Diagnosis: right shoulder SLAP tear MIKE JHA MD Dec 17, 2017 07:24
[2017-12-17] MEDS ORDERED: BUPIVACAINE 0.5% 30 ML (SENSORCAINE) VIAL ONE (07:25)
[2017-12-17] MEDS ORDERED: morphine PF (DURAMORPH) 10 MG/10 ML AMP ONE (07:25)
--- NOTE | 2017-12-17 07:25 | Progress Note-Post Operative ---
Post-Operative Progess Note Surgeon (s)/Seed Packer (s) Surgeon MIKE JHA MD Seed Packer: Shawn Casillas Pre-Operative Diagnosis right shoulder SLAP tear Post-Operative Diagnosis right shoulder SLAP tear and labral tear Procedure & Operative Findings Date of Procedure 12/17/17 Procedure Performed/Findings right shoulder arthroscopic biceps tenotomy and labral debridement Anesthesia Type GETA Estimated Blood Loss Estimated blood loss (mL): minimal Specimens/Packing Specimens Removed none Packing: none MIKE JHA MD Dec 17, 2017 07:25
[2017-12-17] MEDS ORDERED: NS (IVPB) 50 ML ONE (07:32)
[2017-12-17] MEDS ORDERED: ceFAZolin 1,000 MG/10 ML (ANCEF) VIAL ONE (07:32)
[2017-12-17] MEDS ORDERED: ROCURONIUM 10 MG/ML 5 ML SYRINGE IV ONE (07:54)
[2017-12-17] MEDS ORDERED: ONDANSETRON 4 MG/2 ML (SDV) Z0FRAN ONE (07:54)
[2017-12-17] MEDS ORDERED: proPOfol 200 MG/20 ML (DIPRIVAN) VIAL IV ONE (07:54)
[2017-12-17] MEDS ORDERED: LIDOCAINE PF 2% 2 ML (XYLOCAINE) VIAL ONE (07:54)
[2017-12-17] MEDS ORDERED: LACTATED RINGERS 1,000 ML IV PRN (07:59)
[2017-12-17] MEDS ORDERED: ceFAZolin INJECTION 1,000 MG in NS (IVPB) 50 ML IV ONE (08:00)
[2017-12-17] MEDS ORDERED: oxyCODONE/APAP 5/325MG (PERCOCET 5) TABLET PO PRN (08:15)
[2017-12-17] MEDS ORDERED: PHENYLEPHRINE 100 MCG/ML 10 ML (ANESTHESIA) SYR ONE (08:49)
[2017-12-17] MEDS ORDERED: GLYCOPYRROLATE 0.2 MG/ML (ROBINUL) 2 ML VIAL ONE (08:50)
[2017-12-17] MEDS ORDERED: NEOSTIGMINE 1 MG/ML 5 ML SYRINGE ONE (08:50)
[2017-12-17] MEDS ORDERED: HYDROmorphone 2 MG/ML VIAL (DILAUDID) IV ONE (09:00)
[2017-12-17] MEDS ORDERED: ONDANSETRON 4 MG/2 ML (SDV) Z0FRAN IVP PRN (09:00)
[2017-12-17] MEDS ORDERED: morphine INJ 10 MG/ML 1ML (SYR OR VIAL) IVP ONE (09:00)
[2017-12-17] MEDS ORDERED: MEPERIDINE (DEMEROL) INJ 50 MG/ML IVP ONE (09:00)
[2017-12-17] MEDS ORDERED: PROPOFOL INJECTION 50 ML IV ONE (09:03)
[2017-12-17 09:45] VITALS: BP 122/81
--- NOTE | 2017-12-17 09:50 | OPERATIVE REPORT ---
DATE OF SERVICE: 12/17/2017 PREOPERATIVE DIAGNOSES: 1. Right shoulder superior labrum anterior and posterior tear. 2. Right shoulder labral tear. POSTOPERATIVE DIAGNOSES: 1. Right shoulder superior labrum anterior and posterior tear. 2. Right shoulder labral tear. PROCEDURES: 1. Right shoulder arthroscopic biceps tenotomy. 2. Right shoulder arthroscopic labral debridement. SURGEON: Mike Jha MD. LIME HIDE INSPECTOR: MEGHAN Arana, who assisted throughout the procedure and closed the incisions. ANESTHESIA: General endotracheal plus interscalene nerve block. ESTIMATED BLOOD LOSS: Minimal. DRAINS: None. COMPLICATIONS: None. POSTOPERATIVE PLAN: Sling wear for comfort with progressive range of motion as symptoms allow. The patient was transferred to the recovery room awake and in stable condition. STATEMENT OF MEDICAL NECESSITY: The patient is a 57-year-old right hand dominant female with complaints of right shoulder pain, worse with overhead activities. She underwent an MRI after failing conservative measures and was found to have a SLAP tear as well as an anterior labral tear. Due to functional impairment and failure to improve with conservative measures, the patient elected to proceed with surgical intervention. Examination under anesthesia revealed forward elevation of 170 degrees, external rotation of 80 degrees, internal rotation of 70 degrees. Arthroscopic findings demonstrated type 2 SLAP tear with a posterior labral flap at the 10 o'clock to 11 o'clock positions. The remainder of the labrum was intact. There was no significant glenoid or humeral head articular wear. There was mild undersurface fraying at the anterior supraspinatus insertion. The rotator cuff was intact throughout. DESCRIPTION OF PROCEDURE: After risks and benefits of the procedure were discussed and questions were answered, informed consent was signed and placed on the chart. The operative site was confirmed in the preoperative holding area initialed by the surgeon. The patient was then transferred to the operating room. After adequate levels of general endotracheal anesthetic were obtained, a timeout was called confirming the operative site. Examination under anesthesia was performed with the above findings noted. The right shoulder and upper extremity were prepped and draped in the usual sterile fashion. Shoulder joint was injected with 20 mL of fluid. A standard posterior portal was placed under direct visualization. An anterior portal was created in the interval between the biceps, subscapularis and glenoid. The biceps anchor was released and the stump was debrided with shaver. The posterior labral tear was debrided with a shaver back to a stable edge as well. Shoulder joint was copiously irrigated. Portal sites were closed with 4-0 nylon in simple interrupted fashion. Shoulder was injected with Duramorph. Port sites were infiltrated with plain Marcaine. A soft dressing and sling were applied and the patient was transferred to the recovery room awake and in stable condition. Job ID: [id number] DocumentID: [id number] Dictated Date: 12/17/2017 08:51:01 Jinrikisha Driver Date: 12/17/2017 09:49:35 Dictated By: MIKE JHA MD
[2017-12-17] MEDS ORDERED: OXYC-471 PO (09:54)
[2017-12-17 10:15] VITALS: BP 127/86
[2017-12-17 10:45] VITALS: BP 124/76
--- NOTE | 2017-12-17 11:35 | Anesthesia-General Post-Op ---
General Patient Condition Mental Status/LOC: Same as Preop Cardiovascular: Satisfactory Nausea/Vomiting: Absent Respiratory: Satisfactory Pain: Controlled Complications: Absent Post Op Complications Complications None Follow Up Care/Instructions Patient Instructions None needed. Anesthesia/Patient Condition Patient Condition Patient is doing well, no complaints, stable vital signs, no apparent adverse anesthesia problems. No complications reported per nursing. D/C home per [facility] [place] Criteria: Yes CALIN ARMSTRONG CRNA Dec 17, 2017 11:35
== END 2017-12-17 11:00 | disposition home or self-care (01) ==
LOC: SDC 07:00
PROVIDERS: ATTEND Orthopaedic Surgery
DX: S43.431A Superior glenoid labrum lesion of right shoulder, initial encounter (principal); I10 Essential (primary) hypertension; M32.9 Systemic lupus erythematosus, unspecified; G43.909 Migraine, unspecified, not intractable, without status migrainosus; E78.5 Hyperlipidemia, unspecified; J45.909 Unspecified asthma, uncomplicated; F32.9 Major depressive disorder, single episode, unspecified; F41.9 Anxiety disorder, unspecified; K21.9 Gastro-esophageal reflux disease without esophagitis; Z79.899 Other long term (current) drug therapy; Z87.891 Personal history of nicotine dependence; Z79.82 Long term (current) use of aspirin

== ENCOUNTER 2018-04-09 09:23 | Outpatient (CLI) | payer OTHER ==
[~2018-04-09] VITALS: Ht 157.5 cm; Wt 84.9 kg
[~2018-04-09 09:23] MED LIST changes: -AMLO5TAB7 PO; +AMLO5TAB9 PO; +LOSA50TA63 PO; -LOSA50TA7 PO; +OXYC-471 PO
[2018-04-09 09:41] VITALS: BP 129/85
== END 2018-04-09 09:56 | disposition home or self-care (01) ==
LOC: PREOP 09:23
PROVIDERS: ATTEND Orthopaedic Surgery
DX: Z01.818 Encounter for other preprocedural examination (principal)
CPT/HCPCS: 87081

== ENCOUNTER → 2018-05-18 | Outpatient (CLI) | payer OTHER ==
[~2018-05-18] MED LIST changes: -HYDR-3454 PO; +HYDR-3455 PO
[2018-05-18 15:09] LABS: BASOPHILS % (AUTO) 0 % (0-10); EOSINOPHILS # (AUTO) 0.1 10^3/uL (0.0-0.3); EOSINOPHILS % (AUTO) 2 % (0-10); HEMATOCRIT 43 % (35-52); HEMOGLOBIN 15.2 G/DL (11.5-16.0); LYMPHOCYTES % (AUTO) 39 % (12-44); MEAN CORPUSCULAR HEMOGLOBIN 30 PG (25-34); MEAN CORPUSCULAR HGB CONC 36 G/DL (32-36); MEAN CORPUSCULAR VOLUME 84 FL (80-99); MEAN PLATELET VOLUME 10.8 FL (7.4-10.4); MONOCYTES # (AUTO) 0.4 X 10^3 (0.0-1.0); MONOCYTES % (AUTO) 7 % (0-12); NEUTROPHILS # (AUTO) 2.7 X 10^3 (1.8-7.8); NEUTROPHILS % (AUTO) 51 % (42-75); PLATELET COUNT 190 10^3/uL (130-400); RED CELL DISTRIBUTION WIDTH 13.2 % (10.0-14.5); WHITE BLOOD COUNT 5.2 10^3/uL (4.3-11.0)
[2018-05-18 15:30] LABS: ALANINE AMINOTRANSFERASE 10 U/L (0-55); ALBUMIN 4.2 GM/DL (3.2-4.5); ALKALINE PHOSPHATASE 86 U/L (40-136); BILIRUBIN,TOTAL 0.5 MG/DL (0.1-1.0); BUN/CREATININE RATIO 23; CALCIUM 9.5 MG/DL (8.5-10.1); CARBON DIOXIDE 25 MMOL/L (21-32); CHLORIDE 108 MMOL/L (98-107); CREATININE SERUM 1.04 MG/DL (0.60-1.30); GFR ESTIMATED > 60; GLUCOSE 84 MG/DL (70-105); POTASSIUM 3.1 MMOL/L (3.6-5.0); SODIUM 142 MMOL/L (135-145); TOTAL PROTEIN 6.8 GM/DL (6.4-8.2)
== END ==
LOC: LAB 14:50
PROVIDERS: ATTEND Family Medicine
DX: Z83.3 Family history of diabetes mellitus (principal)
CPT/HCPCS: 36415; 80053; 83036; 84443; 85025

== ENCOUNTER 2018-05-26 14:30 | Outpatient (CLI) | payer OTHER ==
[~2018-05-26] VITALS: Ht 157.5 cm; Wt 88.5 kg
[2018-05-27] MEDS ORDERED: HYDR-3816 PO (10:07)
== END 2018-05-26 14:40 | disposition home or self-care (01) ==
LOC: PREOP 14:30
PROVIDERS: ATTEND Orthopaedic Surgery
DX: Z01.818 Encounter for other preprocedural examination (principal)

== ENCOUNTER 2018-05-27 07:55 | Day surgery (SDC) | payer OTHER ==
[~2018-05-27] VITALS: Ht 157.5 cm; Wt 84.0 kg
[2018-05-27 08:02] VITALS: BP 147/79
--- OUTSIDE RECORDS SUMMARY | 2018-05-27 08:16 | XMS REPORT | Continuity of Care Document ---
Author Author [facility] Organization [facility] Address Unknown Phone Unavailable Allergies Active Description Code Type Severity Reaction Onset Reported/Identified Relationship to Patient Clinical Status Yes No Known Drug Allergies [id number] Drug Allergy Unknown N/A 04/09/2018 Medications There is no data. Problems Date Dx Coded Attending Type Code Diagnosis Diagnosed By 02/08/2012 Ot 574.20 CHOLELITHIASIS NOS 02/08/2012 Ot 789.06 ABDOMINAL PAIN, EPIGASTRIC 02/20/2012 Ot 300.00 ANXIETY STATE NOS 02/20/2012 Ot 401.9 HYPERTENSION NOS 02/20/2012 Ot 531.70 CHR STOMACH ULCER NOS 02/20/2012 Ot 716.90 ARTHROPATHY NOS-UNSPEC 02/20/2012 Ot 786.50 CHEST PAIN NOS 02/20/2012 Ot V17.49 FAMILY HISTORY OF OTHER CARDIOVASCULAR D 02/20/2012 Ot V58.66 LONG-TERM ( CURRENT) USE OF ASPIRIN 02/20/2012 Ot V58.69 OTH MED,LT, CURRENT USE 05/18/2012 Ot 531.70 CHR STOMACH ULCER NOS 10/24/2012 OBI FLOWER MD Ot 276.8 HYPOPOTASSEMIA 10/24/2012 OBI FLOWER MD Ot 300.00 ANXIETY STATE NOS 10/24/2012 OBI FLOWER MD Ot V15.82 HISTORY OF TOBACCO USE 03/27/2013 OBI FLOWER MD Ot 327.23 OBSTRUCTIVE SLEEP APNEA (ADULT) (PEDIATR 03/27/2013 MUNDO HERNANDEZ, OBI Morfin Ot 786.09 RESPIRATORY ABNORM NEC 04/05/2014 Ot 789.06 04/05/2014 Ot V72.84 04/05/2014 SHAMIKA SUAZO DO Ot 611.72 05/10/2014 Ot 789.06 05/10/2014 Ot V72.84 05/10/2014 SHAMIKA SUAZO DO Ot 611.72 11/28/2014 Ot 789.06 11/28/2014 Ot V72.84 11/28/2014 [place] SHAMIKA JAMESON Ot 611.72 12/01/2014 DANYELLE DPM, [...] 01/24/2015 Ot 789.06 01/24/2015 Ot V72.84 01/24/2015 [place] SHAMIKA JAMESON Ot 611.72 01/24/2015 DANYELLE DPM, SHANE Q Ot 735.0 01/24/2015 DANYELLE DPM, SHANE Q Ot 735.4 01/24/2015 DANYELLE DPM, SHANE Q Ot V72.63 01/24/2015 DANYELLE DPM, SHANE Q Ot V74.8 01/24/2015 Ot 789.06 01/24/2015 Ot V72.84 01/24/2015 [place] SHAMIKA JAMESON Ot 611.72 01/24/2015 DANYELLE DPM, [...] ABDOMINAL PAIN, EPIGASTRIC 01/29/2016 Ot V72.84 EXAM PRE- OPERATIVE NOS 01/29/2016 SUAZO DO, SHAMIKA D Ot 611.72 LUMP OR MASS IN BREAST [...] ABDOMINAL PAIN, EPIGASTRIC 06/17/2016 Ot V72.84 EXAM PRE- OPERATIVE NOS 06/17/2016 SUAZO DO, SHAMIKA D Ot 611.72 LUMP OR MASS IN BREAST 06/17/2016 DANYELLE DPM, SHANE Q Ot 735.0 HALLUX VALGUS 06/17/2016 DANYELLE DPM, SHANE Q Ot 735.4 OTHER HAMMER TOE 06/17/2016 DANYELLE DPM, SHANE Q Ot V72.63 PRE-PROCEDURAL LABORATORY EXAMINATION 06/17/2016 DANYELLE DPM, SHANE Q Ot V74.8 SCREEN-BACTERIAL DIS NEC 06/17/2016 MUNDO HERNANDEZ, OBI R Ot M25.40 EFFUSION, UNSPECIFIED JOINT 06/17/2016 MIYA ARZATE DO Ot E87.6 HYPOKALEMIA 06/17/2016 MIYA ARZATE DO Ot I10 ESSENTIAL (PRIMARY) HYPERTENSION 06/17/2016 MIYA ARZATE DO Ot R05 COUGH 06/17/2016 MIYA ARZATE DO, Ot R51 HEADACHE 06/17/2016 MIYA ARZATE DO Ot Z79.82 CORRECTION (CURRENT) USE OF ASPIRIN 06/17/2016 MIYA ARZATE DO Ot Z79.899 OTHER CORRECTION (CURRENT) DRUG THERAPY 06/18/2016 MIYA ARZATE DO, Ot E87.6 HYPOKALEMIA 06/18/2016 MIYA ARZATE DO Ot I10 ESSENTIAL (PRIMARY) HYPERTENSION 06/18/2016 MIYA ARZATE DO Ot R05 COUGH 06/18/2016 MIYA ARZATE DO, Ot R51 HEADACHE 06/18/2016 MIYA ARZATE DO Ot 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 06/18/2016 HUEYMIYA ANTHONY DO Mark Ot Z79.899 OTHER AIRCRAFT ENGINEER (CURRENT) DRUG THERAPY 06/28/2016 OBI FLOWER MD R Ot R10.33 PERIUMBILICAL PAIN 07/26/2016 OBI FLOWER MD R Ot R10.33 PERIUMBILICAL PAIN 01/28/2017 OBI FLOWER MD R Ot M15.0 PRIMARY GENERALIZED (OSTEO)ARTHRITIS 02/17/2017 MEGAN HERNANDEZ, REMEIDOS Welch Ot M32.19 OTH ORGAN OR SYSTEM INVOLV IN SYSTEMIC L 02/27/2017 MEGAN HERNANDEZ, REMEDIOS Welch Ot M32.19 OTH ORGAN OR SYSTEM INVOLV IN SYSTEMIC L 03/19/2017 Ot 789.06 ABDOMINAL PAIN, EPIGASTRIC 03/19/2017 Ot V72.84 EXAM PRE- OPERATIVE NOS 03/19/2017 LA[place] JAMESON SHAMIKA Mark Ot 611.72 LUMP OR MASS IN BREAST 03/19/2017 DANYELLE DPM, SHANE Q Ot 735.0 HALLUX VALGUS 03/19/2017 DANYELLE DPM, SHANE Q Ot 735.4 OTHER HAMMER TOE 03/19/2017 DANYELLE DPM, SHANE Q Ot V72.63 PRE-PROCEDURAL LABORATORY EXAMINATION 03/19/2017 DANYELLE DPM, SHANE Q Ot V74.8 SCREEN-BACTERIAL DIS NEC 03/19/2017 MUNDO HERNANDEZ, OBI Morfin Ot M25.40 EFFUSION, UNSPECIFIED JOINT 03/27/2017 MEGAN HERNANDEZ, REMEDIOS Welch Ot M32.19 OTH ORGAN OR SYSTEM INVOLV IN SYSTEMIC L 05/20/2017 OBI FLOWER MD R Ot R10.33 PERIUMBILICAL PAIN 05/20/2017 OBI FLOWER MD Ot M15.0 PRIMARY GENERALIZED (OSTEO)ARTHRITIS 05/20/2017 MEGAN HERNANDEZ, REMEDIOS Welch Ot M32.19 OTH ORGAN OR SYSTEM INVOLV IN SYSTEMIC L 05/21/2017 OBI FLOWER MD R Ot N39.45 CONTINUOUS LEAKAGE 05/26/2017 OBI FLOWER MD Ot N39.45 CONTINUOUS LEAKAGE 12/10/2017 YUDELKA HERNANDEZ, MIKE Fernandes Ot Z01.818 ENCOUNTER FOR OTHER PREPROCEDURAL EXAMIN 12/15/2017 MIKE JHA MD Ot Z01.818 ENCOUNTER FOR OTHER PREPROCEDURAL EXAMIN 12/17/2017 MIKE JHA MD, Ot E78.5 HYPERLIPIDEMIA, UNSPECIFIED 12/17/2017 MIKE JHA MD, Ot F32.9 MAJOR DEPRESSIVE DISORDER, SINGLE EPISOD 12/17/2017 MIKE JHA MD, Ot F41.9 ANXIETY DISORDER, UNSPECIFIED 12/17/2017 MIKE JHA MD, Ot G43.909 MIGRAINE, UNSP, NOT INTRACTABLE, WITHOUT 12/17/2017 MIKE JHA MD Ot I10 ESSENTIAL (PRIMARY) HYPERTENSION 12/17/2017 MIKE JHA MD, Ot J45.909 UNSPECIFIED ASTHMA, UNCOMPLICATED 12/17/2017 MIKE JHA MD, Ot K21.9 GASTRO-ESOPHAGEAL REFLUX DISEASE WITHOUT 12/17/2017 MIKE JHA MD, Ot M32.9 SYSTEMIC LUPUS ERYTHEMATOSUS, UNSPECIFIE 12/17/2017 MIKE JHA MD Ot S43.431A SUPERIOR GLENOID LABRUM LESION OF RIGHT 12/17/2017 MIKE JHA MD Ot Z79.82 CORRECTION (CURRENT) USE OF ASPIRIN 12/17/2017 MIKE JHA MD Ot Z79.899 OTHER CORRECTION (CURRENT) DRUG THERAPY 12/17/2017 MIKE JHA MD, Ot Z87.891 PERSONAL HISTORY OF NICOTINE DEPENDENCE 12/19/2017 MIKE JHA MD, Ot E78.5 HYPERLIPIDEMIA, UNSPECIFIED 12/19/2017 MIKE JHA MD, Ot F32.9 MAJOR DEPRESSIVE DISORDER, SINGLE EPISOD 12/19/2017 MIKE JHA MD, Ot F41.9 ANXIETY DISORDER, UNSPECIFIED 12/19/2017 MIKE JHA MD, Ot G43.909 MIGRAINE, UNSP, NOT INTRACTABLE, WITHOUT 12/19/2017 MIKE JHA MD Ot I10 ESSENTIAL (PRIMARY) HYPERTENSION 12/19/2017 MIKE JHA MD Ot J45.909 UNSPECIFIED ASTHMA, UNCOMPLICATED 12/19/2017 MIKE JHA MD Ot K21.9 GASTRO-ESOPHAGEAL REFLUX DISEASE WITHOUT 12/19/2017 MIKE JHA MD Ot M32.9 SYSTEMIC LUPUS ERYTHEMATOSUS, UNSPECIFIE 12/19/2017 MIKE JHA MD, Ot S43.431A SUPERIOR GLENOID LABRUM LESION OF RIGHT 12/19/2017 MIKE JHA MD, Ot Z79.82 CORRECTION (CURRENT) USE OF ASPIRIN 12/19/2017 MIKE JHA MD, Ot Z79.899 OTHER AIRCRAFT ENGINEER (CURRENT) DRUG THERAPY 12/19/2017 MIKE JHA MD, Ot Z87.891 PERSONAL HISTORY OF NICOTINE DEPENDENCE 05/26/2018 MIKE JHA MD, Ot Z01.818 ENCOUNTER FOR OTHER PREPROCEDURAL EXAMIN 05/26/2018 MIKE JHA MD, Ot Z01.818 ENCOUNTER FOR OTHER PREPROCEDURAL EXAMIN Procedures There is no data. Results Test Result Range Serum or plasma rheumatoid factor measurement (units/volume) - 10/16/15 15:35 Serum or plasma rheumatoid factor measurement (units/volume) NEGATIVE NEGATIVE Erythrocyte sedimentation rate by westergren method - 10/16/15 15:35 Erythrocyte sedimentation rate by westergren method 13 mm 0-30 ANTI-NUCLEAR AB (NINA) ANALYZER - 10/16/15 15:35 Screening antinuclear antibody (NINA) assay by enzyme immunoassay <1: 80 <1:80 Complete blood count (CBC) with automated white blood cell (WBC) differential - 06/17/16 19:15 Blood leukocytes automated count (number/volume) 3.6 10*3/uL 4.3-11.0 Blood erythrocytes automated count (number/volume) 5.19 10*6/uL 4.35-5.85 Venous blood hemoglobin measurement (mass/volume) 15.4 [...] Automated blood platelet mean volume measurement 10.5 [foz_us] 7.4-10.4 Automated blood neutrophils/100 leukocytes 63 % [...] Serum or plasma sodium measurement (moles/volume) 140 mmol/L 135-145 Serum or plasma potassium measurement (moles/volume) 3.3 mmol/L 3.6-5.0 Serum or plasma chloride measurement (moles/volume) 107 mmol/L 98-107 Carbon dioxide 24 mmol/L 21-32 Serum or plasma anion gap determination (moles/volume) 9 mmol/L 5-14 Serum or plasma urea nitrogen measurement (mass/volume) 14 mg/dL 7-18 Serum or plasma creatinine measurement (mass/volume) 1.03 mg/dL 0.60-1.30 Serum or plasma urea nitrogen/creatinine mass [...] 06/17/16 19:15 BNP level 51.5 pg/mL <100.0 Serum or plasma rheumatoid factor measurement (units/volume) - 01/15/17 10:55 Serum or plasma rheumatoid factor measurement (units/volume) NEGATIVE NEGATIVE Erythrocyte sedimentation rate by westergren method - 01/15/17 10:55 Erythrocyte sedimentation rate by westergren method 5 mm 0-30 [id number] - 01/15/17 10:55 Screening antinuclear antibody (NINA) assay by enzyme immunoassay Positive <1:80 Anaplasma phagocytophilum IgG ab [titer] in serum <1: 80 Serum nuclear antibody pattern interpretation Homogeneous [facility] Complete blood count (CBC) with automated white blood cell (WBC) differential - 05/20/17 16:25 Blood leukocytes automated count (number/volume) 5.9 10*3/uL 4.3-11.0 Blood erythrocytes automated count (number/volume) 4.93 10*6/uL 4.35-5.85 Venous blood hemoglobin measurement (mass/volume) 15.0 g/dL 11.5-16.0 Blood hematocrit (volume fraction) 43 % 35-52 Automated erythrocyte mean corpuscular volume 86 [foz_us] 80-99 Automated erythrocyte mean corpuscular hemoglobin (mass per erythrocyte) 30 pg 25-34 Automated erythrocyte mean corpuscular hemoglobin concentration measurement ( mass/volume) 35 g/dL 32-36 Automated erythrocyte distribution width ratio 13.0 % 10.0-14.5 Automated blood platelet count (count/volume) 221 10*3/uL 130-400 Automated blood platelet mean volume measurement 10.7 [foz_us] 7.4-10.4 Automated blood neutrophils/100 leukocytes 56 % 42-75 Automated blood lymphocytes/100 leukocytes 30 % 12-44 Blood monocytes/100 leukocytes 9 % 0-12 Automated blood eosinophils/100 leukocytes 5 % 0-10 Automated blood basophils/100 leukocytes 0 % 0-10 Blood neutrophils automated count (number/volume) 3.3 10*3 1.8-7.8 Blood lymphocytes automated count (number/volume) 1.8 10*3 1.0-4.0 Blood monocytes automated count (number/volume) 0.5 10*3 0.0-1.0 Automated eosinophil count 0.3 10*3/uL 0.0-0.3 Automated blood basophil count (count/volume) 0.0 10*3/uL 0.0-0.1 Comprehensive metabolic panel - 05/20/17 16:25 Serum or plasma sodium measurement (moles/volume) 143 mmol/L 135-145 Serum or plasma potassium measurement (moles/volume) 3.2 mmol/L 3.6-5.0 Serum or plasma chloride measurement (moles/volume) 104 mmol/L 98-107 Carbon dioxide 29 mmol/L 21-32 Serum or plasma anion gap determination (moles/volume) 10 mmol/L 5-14 Serum or plasma urea nitrogen measurement (mass/volume) 21 mg/dL 7-18 Serum or plasma creatinine measurement (mass/volume) 0.99 mg/dL 0.60-1.30 Serum or plasma urea nitrogen/creatinine mass ratio 21 NRG Serum or plasma creatinine measurement with calculation of estimated glomerular filtration rate > NRG Serum or plasma glucose measurement (mass/volume) 85 mg/dL 70-105 Serum or plasma calcium measurement (mass/volume) 9.2 mg/dL 8.5-10.1 Serum or plasma total bilirubin measurement (mass/volume) 0.4 mg/dL 0.1-1.0 Serum or plasma alkaline phosphatase measurement (enzymatic activity/volume) 96 U/L 40-136 Serum or plasma aspartate aminotransferase measurement (enzymatic activity/ volume) 18 U/L 5-34 Serum or plasma alanine aminotransferase measurement (enzymatic activity/volume ) 16 U/L 0-55 Serum or plasma protein measurement (mass/volume) 7.3 g/dL 6.4-8.2 Serum or plasma albumin measurement (mass/volume) 4.0 g/dL 3.2-4.5 THYROID STIMULATING HORMONE - 05/20/17 16:25 THYROID STIMULATING HORMONE 2.97 u[iU]/mL 0.35-4.94 Hemoglobin A1c - 05/20/17 16:25 Blood hemoglobin A1C measurement (mass/volume) 4.7 % 4.0- 5.6 MEAN BLOOD GLUCOSE 88 % <=126 Methicillin resistant Staphylococcus aureus (MRSA) screening culture - 14:10 Methicillin resistant Staphylococcus aureus (MRSA) screening culture NEG NRG Methicillin resistant Staphylococcus aureus (MRSA) screening culture - 09:45 Methicillin resistant Staphylococcus aureus (MRSA) screening culture NEG NRG Complete blood count (CBC) with automated white blood cell (WBC) differential - 05/18/18 15:02 Blood leukocytes automated count (number/volume) 5.2 10*3/uL 4.3-11.0 Blood erythrocytes automated count (number/volume) 5.09 10*6/uL 4.35-5.85 Venous blood hemoglobin measurement (mass/volume) 15.2 g/dL 11.5-16.0 Blood hematocrit (volume fraction) 43 % 35-52 Automated erythrocyte mean corpuscular volume 84 [foz_us] 80-99 Automated erythrocyte mean corpuscular hemoglobin (mass per erythrocyte) 30 pg 25-34 Automated erythrocyte mean corpuscular hemoglobin concentration measurement ( mass/volume) 36 g/dL 32-36 Automated erythrocyte distribution width ratio 13.2 % 10.0-14.5 Automated blood platelet count (count/volume) 190 10*3/uL 130-400 Automated blood platelet mean volume measurement 10.8 [foz_us] 7.4-10.4 Automated blood neutrophils/100 leukocytes 51 % 42-75 Automated blood lymphocytes/100 leukocytes 39 % 12-44 Blood monocytes/100 leukocytes 7 % 0-12 Automated blood eosinophils/100 leukocytes 2 % 0-10 Automated blood basophils/100 leukocytes 0 % 0-10 Blood neutrophils automated count (number/volume) 2.7 10*3 1.8-7.8 Blood lymphocytes automated count (number/volume) 2.0 10*3 1.0-4.0 Blood monocytes automated count (number/volume) 0.4 10*3 0.0-1.0 Automated eosinophil count 0.1 10*3/uL 0.0-0.3 Automated blood basophil count (count/volume) 0.0 10*3/uL 0.0-0.1 Comprehensive metabolic panel - 05/18/18 15:02 Serum or plasma sodium measurement (moles/volume) 142 mmol/L 135-145 Serum or plasma potassium measurement (moles/volume) 3.1 mmol/L 3.6-5.0 Serum or plasma chloride measurement (moles/volume) 108 mmol/L 98-107 Carbon dioxide 25 mmol/L 21-32 Serum or plasma anion gap determination (moles/volume) 9 mmol/L 5-14 Serum or plasma urea nitrogen measurement (mass/volume) 24 mg/dL 7-18 Serum or plasma creatinine measurement (mass/volume) 1.04 mg/dL 0.60-1.30 Serum or plasma urea nitrogen/creatinine mass ratio 23 NRG Serum or plasma creatinine measurement with calculation of estimated glomerular filtration rate > NRG Serum or plasma glucose measurement (mass/volume) 84 mg/dL 70-105 Serum or plasma calcium measurement (mass/volume) 9.5 mg/dL 8.5-10.1 Serum or plasma total bilirubin measurement (mass/volume) 0.5 mg/dL 0.1-1.0 Serum or plasma alkaline phosphatase measurement (enzymatic activity/volume) 86 U/L 40-136 Serum or plasma aspartate aminotransferase measurement (enzymatic activity/ volume) 17 U/L 5-34 Serum or plasma alanine aminotransferase measurement (enzymatic activity/volume ) 10 U/L 0-55 Serum or plasma protein measurement (mass/volume) 6.8 g/dL 6.4-8.2 Serum or plasma albumin measurement (mass/volume) 4.2 g/dL 3.2-4.5 CALCIUM CORRECTED 9.3 mg/dL 8.5-10.1 THYROID STIMULATING HORMONE - 05/18/18 15:02 THYROID STIMULATING HORMONE 2.46 u[iU]/mL 0.35-4.94 Hemoglobin A1c - 05/18/18 15:02 Blood hemoglobin A1C measurement (mass/volume) 4.5 % 4.0- 5.6 MEAN BLOOD GLUCOSE 82 % <=126 Encounters ACCT No. Visit Date/Time Discharge Status Pt. Type Provider Facility Loc./Unit Complaint [id number] 05/26/2018 14:30:00 05/26/2018 14:40:00 DIS Outpatient YUDELKA HERNANDEZ, MIKE Isaacs [facility] PREOP RIGHT KNEE TORN MEDIAL MENISCUS [id number] 05/18/2018 14:50:00 05/18/2018 23:59:59 CLS Outpatient OBI FLOWER MD [facility] LAB FAMILY HX OF DIABETES [id number] 04/15/2018 11:15:00 04/15/2018 23:59:59 CLS Preadmit MIKE JHA MD [facility] RIGHT KNEE TORN MEDIAL MENISCUS, CHONDROMALASIA [place] [id number] 04/09/2018 09:23:00 04/09/2018 09:56:00 DIS Outpatient MIKE JHA MD [facility] PREOP RIGHT KNEE TORN MED. MENISCUS [id number] 12/17/2017 07:00:00 12/17/2017 11:00:00 DIS Outpatient MIKE JHA MD [facility] RIGHT SHOULDER LABRAL TEAR, ROTATOR CUFF TEAR [id number] 12/10/2017 13:26:00 12/10/2017 16:30:00 DIS Outpatient MIKE JHA MD [facility] PREOP RIGHT SHOULDER LABRAL TEAR, ROTATOR CUFF TEAR [id number] 05/20/2017 16:08:00 05/20/2017 23:59:59 CLS Outpatient OBI FLOWER MD [facility] LAB N39.45 [id number] 02/14/2017 11:16:00 02/14/2017 23:59:59 CLS Outpatient REMEDIOS GUZMAN MD [facility] LAB M32.19 [id number] 01/15/2017 10:50:00 01/15/2017 23:59:59 CLS Outpatient OBI FLOWER MD [facility] LAB M15.0 [id number] 06/26/2016 10:36:00 06/26/2016 23:59:59 CLS Outpatient OBI FLOWER MD [facility] RAD PERIUMBILICAL ABD PAIN [id number] 06/17/2016 18:13:00 06/17/2016 20:50:00 DIS Emergency MIYA ARZATE DO [facility] ER HEADACHE/COUGH/STOMACH PAIN/NAUSEA [id number] 10/16/2015 15:22:00 10/16/2015 23:59:59 CLS Outpatient OBI FLOWER MD [facility] LAB JOINT SWELLING [id number] 12/01/2014 06:20:00 12/01/2014 11:20:00 DIS Outpatient GIO BASSETT DPMIN Q [facility] HALLUX VALGUS, HAMMERTOE RIGHT FIFTH TOE [id number] 11/28/2014 11:50:00 11/28/2014 23:59:59 CLS Outpatient DANYELLE CANO SHANE Q [facility] PREOP HALLUX VALGUS, HAMMERTOE RIGHT FIFTH TOE [id number] 03/26/2013 20:11:00 03/27/2013 07:46:00 DIS Outpatient OBI FLOWER MD [facility] SLEEP OA,SNORING,HTN,INSOMNIA ,NARCOLEPSY,EDS,HEADACHES [id number] 02/17/2013 13:39:00 02/17/2013 23:59:59 CLS Outpatient SHAMIKA SUAZO DO [facility] RAD LEFT BREAST MASS [id number] 10/22/2012 13:38:00 10/24/2012 10:31:00 DIS Inpatient OBI FLOWER MD [facility] 4TH LOW GRADE TEMP,MALIASE, FATIGUE [id number] 05/27/2018 08:45:00 ALYSIA JHA MD, MIKE Fernandes [facility] RIGHT KNEE MEDIAL MENISCUS TEAR [id number] 05/18/2012 07:28:00 Document Registration [id number] 05/14/2012 07:23:00 Document Registration [id number] 02/17/2012 17:15:00 Document Registration [id number] 02/11/2012 10:19:00 Document Registration [id number] 02/08/2012 16:17:00 Document Registration
[2018-05-27] MEDS: LACTATED RINGERS 1,000 ML IV PRN ×2 (08:30→10:34)
[2018-05-27] MEDS ORDERED: fentaNYL INJECTION 100 MCG/2 ML AMP ONE (08:45)
[2018-05-27] MEDS ORDERED: MIDAZOLAM 2 MG/2 ML (VERSED) VIAL ONE (08:46)
[2018-05-27] MEDS ORDERED: morphine PF (DURAMORPH) 10 MG/10 ML AMP ONE (08:48)
--- NOTE | 2018-05-27 08:48 | Progress Note-Pre Operative ---
Pre-Operative Progress Note H&P Reviewed The H&P was reviewed, patient examined and no changes noted. Date Seen by Provider: May 27, 2018 Time Seen by Provider: 08:47 Date H&P Reviewed: May 27, 2018 Time H&P Reviewed: 08:47 Pre-Operative Diagnosis: right knee medial meniscus tear and chondromalacia MIKE JAH MD May 27, 2018 08:48
[2018-05-27] MEDS ORDERED: BUPIVACAINE 0.25% 30 ML (SENSORCAINE) VIAL ONE (08:49)
--- NOTE | 2018-05-27 08:49 | Progress Note-Post Operative ---
Post-Operative Progess Note Surgeon (s)/Loom Inspector (s) Surgeon MIKE JHA MD Loom Inspector: none Pre-Operative Diagnosis right knee medial meniscus tear and chondromalacia Post-Operative Diagnosis right knee medial and lateral meniscus tears and chondromalacia of the patella and medial femoral condyle Procedure & Operative Findings Date of Procedure 05/27/18 Procedure Performed/Findings right knee arthroscopic partial medial and lateral meniscectomies and chondroplasty of the medial femoral condyle and patella Anesthesia Type GETA Estimated Blood Loss Estimated blood loss (mL): minimal Specimens/Packing Specimens Removed none Packing: none MIKE JHA MD May 27, 2018 08:49
[2018-05-27] MEDS ORDERED: LACTATED RINGERS 1,000 ML IV PRN (08:55)
[2018-05-27] MEDS ORDERED: ceFAZolin INJECTION 1,000 MG in WATER (STERILE) FOR INJECTION 10 ML IV ONE (09:00)
[2018-05-27] MEDS ORDERED: ceFAZolin INJECTION 1,000 MG ONE (09:04)
[2018-05-27] MEDS ORDERED: WATER (STERILE) FOR INJECTION 10 ML ONE (09:05)
[2018-05-27] MEDS ORDERED: HYDROcodone/APAP 5 MG/325 MG (LORTAB) TAB PO PRN (09:45)
[2018-05-27] MEDS ORDERED: HYDR-3816 PO (10:07)
[2018-05-27] MEDS ORDERED: PROPOFOL INJECTION 50 ML IV ONE (10:23)
[2018-05-27] MEDS ORDERED: ESMOLOL 100 MG/10 ML (BREVIBLOC) VIAL ONE ×2 (10:23→10:29)
[2018-05-27] MEDS ORDERED: DEXAMETHASONE 10 MG/ML (DECADRON) 1 ML VIAL ONE (10:23)
[2018-05-27] MEDS ORDERED: proPOfol 200 MG/20 ML (DIPRIVAN) VIAL IV ONE (10:23)
[2018-05-27] MEDS ORDERED: ONDANSETRON 4 MG/2 ML (SDV) Z0FRAN ONE (10:23)
[2018-05-27] MEDS ORDERED: PHENYLEPHRINE 100 MCG/ML 10 ML (ANESTHESIA) SYR ONE (10:24)
[2018-05-27] MEDS ORDERED: ONDANSETRON 4 MG/2 ML (SDV) Z0FRAN IVP PRN (10:45)
[2018-05-27] MEDS ORDERED: morphine INJ 10 MG/ML 1ML (SYR OR VIAL) IVP ONE (10:45)
[2018-05-27] MEDS ORDERED: LABETALOL HCL 20 MG/4 ML VIAL ONE (11:04)
[2018-05-27 11:30] VITALS: BP 130/86
[2018-05-27 12:00] VITALS: BP 134/90
[2018-05-27] MEDS ORDERED: LABETALOL HCL 20 MG/4 ML VIAL IV ONE (12:00)
[2018-05-27 12:30] VITALS: BP 130/94
--- NOTE | 2018-05-27 12:30 | NUR ---
JUAN WRAPPED DSG REMAINS D/I TO RIGHT KNEE. CONTINUES TO RATE PAIN 2, CMS CHECKS WNL TO RIGHT LEG. HAS BEEN UP WITH PHYSICAL THERAPY FOR WALKER TRAINING, TOLERATED WELL. STATES SHE HAS A WALKER AT HOME FOR USE. TAKING PO FLUIDS WITHOUT PROBLEM. STATES SHE IS READY FOR DISMISSAL.
[2018-05-27 12:37] VITALS: BP 130/94
--- NOTE | 2018-05-27 13:50 | Physical Therapy Ortho Eval ---
PT Orthopedic Evaluation Type of Surgery Knee Scope right side Prior Level of Function Current Living Status: Spouse Locomotion (Upon Admit): Independent Established Durable Medical Eq: Front Wheeled Walker Subjective Subjective Patient in bed pre tx, agrees to PT, has little pain at rest in bed. Entry Into Home: Level Entry Other Obstacles: Jan states she has steps inside her home. Motor Control Motor Control: Motor Control WNL ROM right knee flexin 80 degrees, extension +4 degrees Transfer Transfers (B, C, W/C) (FIM): 5 Gait Gait Assistive Device: FWW Weight Bearing Status RLE: Weight Bearing/Tolerated Gait (FIM): 5 Distance: 150' Gait Level of Assist: 5 Summary/Comments Patient ambulated 150' with a rolling walker with SBA. She also used the restroom with SBA. Patient went up and down 1 step using a rolling walker with SBA and cues for foot placement. Treatment Rendered Treatment: Therapeutic Exercises, Gait Train, Step Train Exercise Instruction: Quad Sets, Heel Slides, Ankle Pumps Assessment/Goals Goal Time Frame: 1 Visit Plan Treatment Plan: Discharge PT/Family Agrees to Plan: Yes Time Time In: 1155 Time Out: 1215 Total Billed Treatment Time: 20 Billed Treatment Time 1 visit EVL 20' ISMAEL MANNING PT May 27, 2018 13:50
--- NOTE | 2018-05-27 15:36 | OPERATIVE REPORT ---
DATE OF SERVICE: 05/27/2018 PREOPERATIVE DIAGNOSES: 1. Right knee medial meniscus tear. 2. Right knee chondromalacia of the medial femoral condyle. 3. Right knee chondromalacia of the patella. POSTOPERATIVE DIAGNOSES: 1. Right knee medial meniscus tear. 2. Right knee chondromalacia of the medial femoral condyle. 3. Right knee chondromalacia of the patella. 4. Right knee lateral meniscus tear. PROCEDURES PERFORMED: 1. Right knee arthroscopic partial medial meniscectomy. 2. Right knee arthroscopic partial lateral meniscectomy. 3. Right knee arthroscopic chondroplasty medial femoral condyle. 4. Right knee arthroscopic chondroplasty of the patella. SURGEON: Mike Jha MD. LIVE TRUCK TECHNICIAN: None. ANESTHESIA: General endotracheal by Dr. Messer. TOURNIQUET TIME: Not applicable. ESTIMATED BLOOD LOSS: Minimal. DRAINS: None. COMPLICATIONS: None. POSTOPERATIVE PLAN: Routine arthroscopy protocol. The patient was transferred to the recovery room awake and in stable condition. STATEMENT OF MEDICAL NECESSITY: The patient is a 57-year-old female with known arthrosis of her right knee, but she complained of catching, locking and swelling in her knee. She understood the knee arthroscopy could help with her mechanical symptoms, but would not cure her arthritic type symptoms. Due to functional impairment and failure to improve with conservative measures, the patient elected to proceed with surgical intervention. Examination under anesthesia revealed range of motion of 0/2/135 with a negative Panchito, negative anterior and posterior drawer. No varus valgus laxity, negative pivot shift. ARTHROSCOPIC FINDINGS: The patella demonstrated grade III chondral flap central and a 20 x 20 area of the trochlea demonstrated grade I chondral softening. The medial and lateral gutters were clear. The ACL and PCL were intact. The lateral compartment demonstrated diffuse grade IV chondral loss of the posterior aspect of the femoral condyle and tibial plateau with a degenerative tear of the posterior horn and body of the lateral meniscus involving approximately one half of the posterior horn and body. The ACL and PCL were intact. The medial compartment demonstrated a diffuse grade III chondral loss throughout with unstable chondral flaps in a 10 x 10 area of the femoral condyle and a horizontal cleavage tear of the posterior horn of the medial meniscus involving approximately one-third of the posterior horn. DESCRIPTION OF PROCEDURE: After risks and benefits of the procedure were discussed and questions were answered, an informed consent was signed and placed on chart. The operative site was confirmed in the preoperative holding area initialed by the surgeon. The patient was then transferred to the operating room. After adequate levels of general endotracheal anesthetic were obtained, a timeout was called confirming the operative site. An examination under anesthesia was performed with the above findings noted. The right lower extremity was prepped and draped in the usual sterile fashion. The knee joint was injected with 60 mL of fluid and standard inferolateral portals were placed with the arthroscope under direct visualization and an inferomedial portal was created. The menisci and cruciates were carefully removed. The above findings noted. The unstable chondral flaps in the patella were debrided with shaver back to a stable edge. Scope was redirected into the lateral compartment where the lateral meniscus tear was debrided with the biter and shaver removing approximately one-half of the posterior horn and body. The scope was then redirected into the medial compartment. The unstable chondral flaps of the medial femoral condyle were debrided with a shaver back to a stable edge and the posterior horn of the medial meniscus was debrided with the biter and shaver removing approximately one-third of the posterior horn. This was carefully probed with no further tearing or instability noted. The knee was copiously irrigated and the portal sites were closed with 4-0 nylon in a simple interrupted fashion. The knee was injected with Duramorph. Portal sites were infiltrated with plain Marcaine. A soft dressing was applied. The patient was transferred to the recovery room awake and in stable condition. Job ID: [id number] DocumentID: [id number] Dictated Date: 05/27/2018 10:42:05 Mathematical Scientist Date: 05/27/2018 15:35:34 Dictated By: MIKE JHA MD
--- NOTE | 2018-06-01 08:32 | HISTORY AND PHYSICAL ---
DATE OF SERVICE: 05/27/2018 DATE OF ADMISSION: 05/27/2018. This will be for outpatient surgery on 05/27/2018 for right knee arthroscopy. HISTORY OF PRESENT ILLNESS: The patient is a 57-year-old female complains of progressive worsening right knee pain. She reports swelling. She has undergone multiple aspirations and injections. She reports popping and catching in the knees. She reports activity limitations due to functional impairment and failure to improve with conservative measures, the patient elected to proceed with surgical intervention. REVIEW OF SYSTEMS: No chest pain, no shortness of breath, no dysuria. PAST MEDICAL HISTORY: Hypertension, lupus, migraines, hyperlipidemia, thyroid and asthma. PAST SURGICAL HISTORY: Right shoulder, tubal ligation. FAMILY HISTORY: Significant for hypertension. PRIMARY CARE PROVIDER: Dr. Navas. MEDICATIONS: Fluconazole, Proventil, losartan, amlodipine, hydrochlorothiazide, topiramate, meloxicam, hydroxychloroquine and aspirin. ALLERGIES: No known drug allergies. SOCIAL HISTORY: The patient reports occasional alcohol use and occasional smoking. Radiographs reveal mild medial joint space narrowing. PHYSICAL EXAMINATION: GENERAL: The patient is well developed, well-nourished, in no acute distress. HEENT: Normocephalic, atraumatic. Pupils equal, round, react to light. Oropharynx is clear. NECK: Supple, no lymphadenopathy. LUNGS: Clear to auscultation bilaterally. HEART: Regular rate and rhythm. ABDOMEN: Soft, nontender, nondistended. EXTREMITIES: The right knee demonstrates moderate effusion. She has markedly positive Lily on the right with tenderness along the medial joint line. She has patellofemoral crepitus and pain with patellar loading. Range of motion 0/0/120. No varus or valgus laxity. Negative anterior and posterior drawer. Negative Panchito, negative pivot shift. IMPRESSION: Right knee medial meniscus tear with associated chondromalacia. PLAN: Right knee arthroscopy and chondroplasty with partial meniscectomy. The risks, benefits, options, ramifications and recovery were discussed at length with the patient. She understands and wishes to proceed. Job ID: [id number] DocumentID: [id number] Dictated Date: 05/18/2018 10:40:15 Engravings Polisher Date: 05/18/2018 11:54:19 Dictated By: MIKE JHA MD <Dictated by MIKE JHA MD> <Electronically signed by MIKE JHA MD> 05/20/18 [id number]
== END 2018-05-27 12:37 | disposition home or self-care (01) ==
LOC: SDC 07:55
PROVIDERS: ATTEND Orthopaedic Surgery
DX: M23.251 Derangement of posterior horn of lateral meniscus due to old tear or injury, right knee (principal); M23.221 Derangement of posterior horn of medial meniscus due to old tear or injury, right knee; M22.41 Chondromalacia patellae, right knee; Z11.2 Encounter for screening for other bacterial diseases; I10 Essential (primary) hypertension; J45.909 Unspecified asthma, uncomplicated; K21.9 Gastro-esophageal reflux disease without esophagitis; M32.9 Systemic lupus erythematosus, unspecified; G43.909 Migraine, unspecified, not intractable, without status migrainosus; E78.5 Hyperlipidemia, unspecified; F17.210 Nicotine dependence, cigarettes, uncomplicated; Z79.899 Other long term (current) drug therapy; Z79.82 Long term (current) use of aspirin
CPT/HCPCS: 87081

== ENCOUNTER → 2018-11-24 | Outpatient (CLI) | payer OTHER ==
[~2018-11-24] MED LIST changes: +HYDR-3816 PO
[2018-11-24 15:54] LABS: ALBUMIN 4.5 GM/DL (3.2-4.5); BILIRUBIN,TOTAL 0.7 MG/DL (0.1-1.0); CALCIUM 9.7 MG/DL (8.5-10.1); CREATININE SERUM 1.21 MG/DL (0.60-1.30); POTASSIUM 3.6 MMOL/L (3.6-5.0); TOTAL PROTEIN 7.3 GM/DL (6.4-8.2)
== END ==
LOC: LAB 15:02
PROVIDERS: ATTEND Family Medicine
DX: M13.80 Other specified arthritis, unspecified site (principal)
CPT/HCPCS: 36415; 80053